=== PATIENT | male | born 1935 | race Caucasian/White ===

== ENCOUNTER 2023-09-21 06:14 | Day surgery (SDC) | payer OTHER, SELFPAY ==
[2023-09-15 10:34] VITALS: BMI 28.6
[2023-09-15 11:30] LABS: % Basophils 0.5 % (0-2); % Eosinophils 1.5 % (0-6); % Immature Granulocytes 0.3 % (0-0.5); % Lymphocytes 14.7 % (20.5-51.1); % Monocytes 11.4 % (1.7-9.3); % Neutrophils 71.6 % (42.2-75.2); Absolute Eosinophils 0.1 10^3/uL (0-0.7); Absolute Lymphocytes 0.9 10^3/uL (1.2-3.4); Absolute Monocytes 0.7 10^3/uL (0.1-0.6); Absolute Neutrophils 4.4 10^3/uL (1.4-6.5); Hematocrit 38.3 % (39.0-52.0); Mean Corp Hgb Conc. 33.9 g/dL (33.0-37.0); Mean Corpuscular Hgb 32.7 pg (27.0-31.0); Mean Corpuscular Volume 96.5 fL (80.0-94.0); Mean Platelet Volume 9.9 fL (7.4-10.4); Nucleated Red Blood Cells % 0 % (-); Platelet Count 168 10^3/uL (130-400); Red Blood Cell Count 3.97 10^6/uL (4.70-6.10); Red Cell Dist. Width 13.6 % (11.5-14.5); White Blood Cell Count 6.1 10^3/uL (4.8-10.8)
[2023-09-15 12:09] LABS: ALT (SGPT) 16 U/L (0-50); AST (SGOT) 28 U/L (17-59); Albumin 4.4 g/dl (3.5-5.0); Alkaline Phosphatase 69 U/L (38-126); Blood Urea Nitrogen 19 mg/dl (9-20); Calcium 10.1 mg/dl (8.4-10.2); Carbon Dioxide 25 mmol/L (22-30); Chloride 103 mmol/L (98-107); Estimated Creatinine Clearance 56 ml/min; Glucose 99 mg/dl (70-99); Potassium 4.4 mmol/L (3.5-5.1); Sodium 136 mmol/L (135-145); Total Bilirubin 0.9 mg/dl (0.2-1.3); eGFR > 60.00
[2023-09-21] VITALS (21 sets, daily range): BP systolic 96–163; BP diastolic 73–108; BMI 27.0
--- NOTE | 2023-09-21 10:17 | ITS.CL.CATH ---
[facility] - Catheterization
Cardiac Catheterization
Procedure Report:
RIGHT AND LEFT HEART CATHETERIZATION
Date of Procedure: September 21, 2023
Referring: Dr. Jeffry Boyd
PROCEDURES:
1. Right heart catheterization
2. Coronary angiography
3. Selective saphenous vein and nonselective VINCENZO angiography
4. Hemodynamic assessment of external iliac/common femoral stenosis with pullback of diagnostic catheter and sheath
INDICATION: 88-year-old gentleman with history of coronary artery disease and prior coronary artery bypass grafting (CESAR-LAD, sequential DHO-ialhcxne-QI-PDA) and mitral repair with a 28 mm mitral valve ring. He has developed progressive aortic
stenosis and worsening LV function with an estimated ejection fraction of 30-35% by visual estimation and mean aortic valve gradient of 44 mmHg. He has experienced episodes of substernal chest tightness and exertional dyspnea.
ACCESS: Attempted left radial access was unsuccessful. Pulsatile lizeth was obtained on several occasions with inability to advance 0.018 inch guidewire. Eventually the left radial approach was abandoned in favor of right common femoral arterial
approach. Ultrasound guidance was utilized with micropuncture technique.
HEMODYNAMICS (mmHg) :
RA (m) : 15
RV (s/d) : 45/9, 15
PA (s/d,m) : 44/23, 30
PCWP (m) : 25 with V waves to 40 mmHg
AO (s/d, m) : 148/85, 109
Estimated Catherine Cardiac Output: 4.3 L/min and Cardiac Index: 2.1 L/min/M-2
Systemic vascular resistance: 21.9 Wood units or 1749 wmfqb-txk-nk(-5)
Pulmonary vascular resistance: 1.2 Wood units or 93 zdopm-uud-je(-5)
CORONARY ANGIOGRAPHY
Dominance: Right
LEFT MAIN: 100% occluded
LEFT ANTERIOR DESCENDIN% occluded at its origin. The distal vessel fills via a patent VINCENZO graft anastomosed to the mid LAD. There is antegrade and retrograde filling of the LAD
CIRCUMFLEX: 100% occluded at its origin. The distal vessel fills via a patent triple sequential vein yrcqh-jxdngygh-VK-PDA
RIGHT CORONARY ARTERY: Not selectively engaged but was not felt to be a likely interventional target through the [place] vessel. The distal vessel is recipient of the terminal limb of the triple sequential graft.
GRAFT ANGIOGRAPHY:
1. CESAR-LAD: Nonselective CESAR injection demonstrates a widely patent graft to the mid LAD. There is antegrade and retrograde filling of the LAD. Retrograde, the LAD fills back to its origin supplying a moderate-sized diagonal branch.
2. CBM-crydlesx-NA-PDA: The triple sequential saphenous vein graft to the fjtrsocs-PS-OCS is widely patent.
NOTE: There was no pullback gradient noted during withdrawal of diagnostic catheter beginning above the aortic endograft and into the right common femoral sheath. Likewise, there was no gradient noted with slow pullback of the femoral sheath from
the right distal limb into the common femoral artery
LEFT VENTRICULOGRAPHY: Not done
RADIATION SUMMARY: Fluoro Time (min): 29, Dose (mGy): 927, DAP (Gy.cm2) : 111.3
Closure Device: None
CONCLUSION
1. 100% occlusion of the left main with widely patent CESAR-LAD and sequential ICM-azhkbmah-PI-PDA
2. Severe aortic stenosis
RECOMMENDATIONS
1. TAVR evaluation
Copy to: Dr. Jeffry Boyd
--- NOTE | 2023-09-21 11:31 | CONSULT.STRU ---
Consultation
-
Date/Time Consultation Requested: 09/21/2023 1000
Date/Time Consultation Performed: 09/21/2023 1030
Requesting Provider: Dr. Chacon
Performing Provider: SRINIVAS Mullins
Reason for Consultation: Aortic stenosis/TAVR evaluation
Patient History
Physicians
Family Physician: Leonidas Evans DO
Outpatient Pen Ruler Operator: Jeffry Boyd MD
Primary Pen Ruler Operator: Jeffry Boyd MD
History of Present Illness
Mr. Quintanilla is a very pleasant 88yo male with known history of aortic stenosis. He denies EPSTEIN. He has noted some mild fatigue and does note some substernal chest tightness at times. He notices it when in stressful situations and it is self limiting. He
denies orthopnea, PND, peripheral edema or palpitations. He has developed progressive aortic stenosis and worsening LV function with an estimated ejection fraction of 30-35% by visual estimation and mean aortic valve gradient of 44 mmHg, LEIGH: 0.6.
Cardiac cath today shows 100% occlusion of the left main with widely patent CESAR-LAD and sequential MRP-jqdnnnqb-PJ-PDA and severe aortic stenosis. He has a history of coronary artery disease with prior CABG(2013), mitral valve repair at time of
bypass,abdominal aortic aneurysm with prior stent graft, paroxysmal atrial fibrillation, aortic stenosis.
Reviewed the pathophysiology of aortic stenosis with the patient, his daughter and his son-in-law. Explained the treatment options of SAVR and TAVR. Explained the TAVR evaluation process including follow up BMP, CT TAVR scan, CT surgery consult and
Heart Team discussion. Provided with script for BMP next week, script and appointment for CT TAVR, Consult appointment with Dr. Cavazos and a copy of the TAVR education booklet with contact information. Allowed for and answered questions.
Past Medical History
Past Medical History: Atrial Fib (paroxysmal (C2V: 5)), BPH, CAD, GERD, HTN, Hypercholesterolemia, Hypothyroidism, Valvular Disease (MV repair, aortic stenosis) and Other (Cardiomyopathy, h/o vertigo, h/o acute bacterial prostatitis and left
epididymitis, h/o AAA, Colon polyps, Pancreatic cyst, lyme disease, diverticulosis, atrophic gastritis)
Past Surgical History
Past Surgical History: CABG (x4-CESAR to LAD, SVG to fist diag then onto 4th OM and then onto PDA 07/2013), Cholecystectomy (laproscopic 2019), Valve (MV repair with 28mm ring 07/2013) and Other (sinus surgery, skin cancer resection, EVAR, cataract
surgery)
Dental History
[facility]
Family History
Mother: at Age and Cause of (liver cancer)
Father: at Age and Cause of (MT)
Family Medical History: Cancer (lung, liver)
Social History
Alcohol: None
Drug: None
Tobacco: Non-Smoker
Personal: ( is in skilled nursing with dementia)
Living: With Family (Daughter and Son-in-law)
Employment: Retired
Allergies
Allergy/AdvReac Type Severity Reaction Status Date / Time
acetaminophen [From Percocet] Allergy Nausea / Verified 09/21/23 06:54
Vomiting
oxycodone [From Percocet] Allergy Nausea / Verified 09/21/23 06:54
Vomiting
Home Medications
�Medication �Instructions �Recorded �Confirmed �Type
finasteride 5 mg tablet 5 mg PO DAILY Urinary issue 07/24/13 09/21/23 History
levothyroxine 25 mcg tablet 50 mcg PO DAILY Thyroid 07/17/17 09/21/23 History
pantoprazole 40 mg tablet,delayed 40 mg PO DAILY Gastrointestinal 11/01/17 09/21/23 History
release issue
atorvastatin 40 mg tablet 40 mg PO QPM High cholesterol 06/16/19 09/21/23 History
apixaban 5 mg tablet (Eliquis) 5 mg PO BID Blood Clot 01/09/23 09/21/23 History
Prevention/Tx
dimenhydrinate 25 mg chewable 50 mg PO Q8HPRN PRN verigo 01/09/23 09/21/23 History
tablet (Dramamine)
lisinopril 40 mg tablet 40 mg PO BID Blood Pressure 01/09/23 09/21/23 History
metoprolol succinate 50 mg 25 mg PO BID Blood Pressure 01/09/23 09/21/23 History
tablet,extended release 24 hr
prednisolone sod phos 1 1 drp ophthalmic (eye) .SEE TAPER 01/09/23 09/21/23 History
%-moxifloxacin 0.5 %-bromfen 0.075 Eye Condition
% eye drops
tamsulosin 0.4 mg capsule (Flomax) 0.4 mg PO HS BPH 01/09/23 09/21/23 History
Cbd Oil 1 squirt transdermal DAILY PRN pain 09/21/23 09/21/23 History
Hempvanna 1 applic topical DAILY PRN Pain 09/21/23 09/21/23 History
cream
acetaminophen 500 mg tablet 1,000 mg PO Q6H PRN as needed 09/21/23 09/21/23 History
amoxicillin 500 mg tablet 2,000 mg PO DAILY PRN Dental 09/21/23 09/21/23 History
Procedures
psyllium husk (aspartame) 3 gram 1 packet PO DAILY 09/21/23 09/21/23 History
oral powder packet (Daily Fiber
(psyllium-aspartame))
STS%
STS %: 6.1% operative mortality. 11.3% M&M
Review of Systems
-
History Source: Patient and Family
General: Reports Fatigue
HEENT: Reports No Symptoms
Respiratory: Reports No Symptoms
Cardiac: Reports Chest Pain (feels with stressful situations. Resolves without medication), CAD (h/o CABGx4), Known Vascular Disease (h/o AAA, Right MORIAH aneurysm) and Palpitations (PAF, a-flutter)
Abdomen/GI: Reports Reflux
: Reports Frequency (BPH)
Musculoskeletal: Reports No Symptoms
Skin: Reports No Symptoms
Neurological: Reports No Symptoms
Vascular: Reports Other (h/o AAA, iliac aneurysm, endoleak s/p EVAR)
Physical Exam
Vital Signs
Temp 97.0 F 09/21/23 09:40
Temp route: Oral 09/21/23 09:40
Pulse 71 09/21/23 11:02
Resp Rate 16 09/21/23 07:09
Blood pressure 96/73 09/21/23 11:02
Blood pressure extremity used: Right upper arm 09/21/23 07:09
Position: Lying 09/21/23 07:09
MAP (cuff-Danna Monitor) 81 09/21/23 11:02
SaO2 98 09/21/23 11:27
Oxygen Mode of Delivery Room air 09/21/23 11:27
Can the patient verbally communicate their pain? Yes 09/21/23 11:27
Actual Weight 85.275 kg 09/21/23 07:14
Body Mass Index (BMI) 27.0 09/21/23 07:14
Labs
09/15/23 10:41
09/15/23 10:41
Diagnostic Studies
09/10/2023 EKG:
Rate: 84, SR with right BBB and left axis bifascicular block
09/07/2023 Echocardiogram:
CONCLUSIONS
Normal left ventricular size. Mildly reduced systolic function. No regional
wall motion abnormalities are seen. LV ejection fraction is 29% by Morales's
biplane method of discs; 30-35% by visual assessment. Mild left ventricular
hypertrophy. Stage II diastolic dysfunction suggestive of abnormal relaxation
and increased filling pressures.
Normal right ventricular size and function.
Normal atria.
S/P # 28 mm Mitral valve ring repair. Peak/mean gradients across the mitral
valve are 9/5 mmHg respectively. Mild mitral regurgitation. This may be
underestimated due to acoustic shadowing.
Thickened and calcified trileaflet aortic valve with restricted leaflet motion.
Trace aortic regurgitation. Severe aortic stenosis. Averaged peak/mean
gradients across the aortic valve are 71/44 mmHg respectively. Using an LVOT
diameter of 2.2 cm the aortic valve by the Continuity equation is calculated at
0.6 cm2. Dimensionless index of 0.2.
Mild tricuspid regurgitation. Estimated pulmonary artery pressure of 37 mmHg
assuming a right atrial pressure of 3 mmHg.
When compared to prior echocardiogram on 03/09/2023, there is newly reduced
LVEF (from 53% to 30-35%); no other significant changes.
Indications:
Nonrheumatic aortic (valve) stenosis
Rhythm: Sinus
Portable Study: No
Technical Quality: Fair to poor
Contrast: None
BP: 124 / 80
PROCEDURE
A complete Transthoracic Echocardiogram was performed utilizing two-dimensional
evaluation with color flow and spectral Doppler analysis.
FINDINGS
Left Ventricle
Normal left ventricular size. Mildly reduced systolic function. No regional
wall motion abnormalities are seen. LV ejection fraction is 29% by Morales's
biplane method of discs; 30-35% by visual assessment. Mild left ventricular
hypertrophy. Stage II diastolic dysfunction suggestive of abnormal relaxation
and increased filling pressures.
Right Ventricle
Normal right ventricular size and function.
Left Atrium
Indexed LA volume is within normal range (15-34 mL/m2).
Right Atrium
Normal right atrial size.
Mitral Valve
S/P # 28 mm Mitral valve ring repair. Peak/mean gradients across the mitral
valve are 9/5 mmHg respectively. Mild mitral regurgitation. This may be
underestimated due to acoustic shadowing.
Aortic Valve
Thickened and calcified trileaflet aortic valve with restricted leaflet motion.
Trace aortic regurgitation. Severe aortic stenosis. Averaged peak/mean
gradients across the aortic valve are 71/44 mmHg respectively. Using an LVOT
diameter of 2.2 cm the aortic valve by the Continuity equation is calculated at
0.6 cm2. Dimensionless index of 0.2.
Tricuspid Valve
Tricuspid valve opens normally. Mild tricuspid regurgitation. Estimated
pulmonary artery pressure of 37 mmHg assuming a right atrial pressure of 3
mmHg.
Pulmonic Valve
Pulmonic valve opens normally. Trace pulmonic regurgitation.
Pericardium\\Pleura
Normal pericardium without effusion.
Aorta
The aortic root is of normal size. Suboptimal suprasternal notch view. Aortic
arch not well visualized.
Other Finding
The IVC is of normal size and demonstrates normal respiratory variation.
Interatrial septum is intact with no evidence of shunting by color flow
Doppler. No intracardiac mass or thrombus formation seen.
MEASUREMENTS (Male / Female) Normal Values
2D ECHO
LV Diastolic Diameter PLAX 5.8 cm 4.2 - 5.9 / 3.9 - 5.3 cm
LV Systolic Diameter PLAX 5.1 cm
IVS Diastolic Thickness 1.3 cm 0.6 - 1.0 / 0.6 - 0.9 cm
LVPW Diastolic Thickness 1.1 cm 0.6 - 1.0 / 0.6 - 0.9 cm
LV Relative Wall Thickness 0.4
LVOT Diameter 2.2 cm
LV Ejection Fraction MOD BP 28.7 % >= 55 %
LV Stroke Volume MOD BP 37.0 cm3
LV Cardiac Index MOD BP 1014.8 cm3/min
LV Stroke Volume MOD 4C 27.5 cm3
LV Stroke Volume 4C AL 29.9 cm3
LV Stroke Volume MOD 2C 42.0 cm3
LV Stroke Volume 2C AL 42.5 cm3
LA Area 4C View 21.2 cm2 <= 20 cm2
LA Length 4C 6.0 cm
LA Volume 61.0 cm3 18 - 58 / 22 - 52 cm3
LA Volume Index 33.8 cm3/m2 16 - 34 cm3/m2
DOPPLER
AV Peak Velocity 422.0 cm/s
AV Peak Gradient 71.2 mmHg
AV Mean Gradient 44.0 mmHg
AV Velocity Time Integral 97.6 cm
LVOT Peak Velocity 64.9 cm/s
LVOT Peak Gradient 1.7 mmHg
LVOT Velocity Time Integral 15.7 cm
LVOT Stroke Volume 59.8 cm3
LVOT Stroke Volume Index 28.8 ml/m2 empty
LVOT Cardiac Index 1640.3 cm3/min\\m2
AV Area Cont Eq vti 0.6 cm2
AV Area Cont Eq pk 0.6 cm2
MV Peak Velocity 153.0 cm/s
MV Peak Gradient 9.4 mmHg
MV Mean Velocity 104.0 cm/s
MV Mean Gradient 5.0 mmHg
MV Area PHT 2.0 cm2
Mitral E Point Velocity 145.0 cm/s
Mitral A Point Velocity 132.0 cm/s
Mitral E to A Ratio 1.1
LV E' Lateral Velocity 15.3 cm/s
Mitral E to LV E' Lateral Ratio 9.5
LV E' Septal Velocity 6.0 cm/s
Mitral E to LV E' Septal Ratio 24.0
TR Peak Velocity 291.0 cm/s
TR Peak Gradient 33.9 mmHg
09/21/2023 Cardiac Cath:
HEMODYNAMICS (mmHg) :
RA (m) : 15
RV (s/d) : 45/9, 15
PA (s/d,m) : 44/23, 30
PCWP (m) : 25 with V waves to 40 mmHg
AO (s/d, m) : 148/85, 109
Estimated Catherine Cardiac Output: 4.3 L/min and Cardiac Index: 2.1 L/min/M-2
Systemic vascular resistance: 21.9 Wood units or 1749 gfhft-snf-iv(-5)
Pulmonary vascular resistance: 1.2 Wood units or 93 iftbo-swz-gn(-5)
CORONARY ANGIOGRAPHY
Dominance: Right
LEFT MAIN: 100% occluded
LEFT ANTERIOR DESCENDIN% occluded at its origin. The distal vessel fills via a patent VINCENZO graft anastomosed to the mid LAD. There is antegrade and retrograde filling of the LAD
CIRCUMFLEX: 100% occluded at its origin. The distal vessel fills via a patent triple sequential vein fdrig-yglufqzy-RJ-PDA
RIGHT CORONARY ARTERY: Not selectively engaged but was not felt to be a likely interventional target through the king [place] vessel. The distal vessel is recipient of the terminal limb of the triple sequential graft.
GRAFT ANGIOGRAPHY:
1. CESAR-LAD: Nonselective CESAR injection demonstrates a widely patent graft to the mid LAD. There is antegrade and retrograde filling of the LAD. Retrograde, the LAD fills back to its origin supplying a moderate-sized diagonal branch.
2. EOR-zvrzselv-LB-PDA: The triple sequential saphenous vein graft to the qxsyemjr-QU-NNJ is widely patent.
NOTE: There was no pullback gradient noted during withdrawal of diagnostic catheter beginning above the aortic endograft and into the right common femoral sheath. Likewise, there was no gradient noted with slow pullback of the femoral sheath from
the right distal limb into the common femoral artery
LEFT VENTRICULOGRAPHY: Not done
RADIATION SUMMARY: Fluoro Time (min): 29, Dose (mGy): 927, DAP (Gy.cm2) : 111.3
Closure Device: None
CONCLUSION
1. 100% occlusion of the left main with widely patent CESAR-LAD and sequential LND-mdpnzbqc-DR-PDA
2. Severe aortic stenosis
RECOMMENDATIONS
1. TAVR evaluation
Exam
General: Well Developed, Well Nourished, No Apparent Distress and Comfortable
HEENT: Normocephalic and Moist Mucous Membranes
Neck: Trachea Midline
Respiratory: Clear
Cardiac: S1/S2, Regular Rhythm and Murmur (Grade III/)
GI: Soft, Non Tender, Non Distended and Normal Bowel Sounds
Rectal: Deferred by Provider
Skin: Warm and Dry
Neuro: AO x 3 and No Motor Deficits
Extremities: Pulses (Left and right dp and PT pulse +1)
Psych: Calm
Assessment / Plan
-
Severe Aortic stenosis:
��������������� Continue evaluation for TAVR
��������������� BMP 09/27/2023 at
��������������� CT TAVR scan 10/01/2023 at
��������������� CT surgery consult with Dr. Cavazos 10/07/2023
��������������� Heart team discussion at [facility]
Dental Clearance- form faxed to dentist 09/20
Paroxysmal Atrial Fibrillation (C2V:5):
Rate control
Will need to hold Eliquis 48 hours prior to TAVR and start ASA while on hold
Data Reviewed
-
EKG: Report Reviewed by me (SR with R-BBB and Left axis bifascicular block)
Prosthetics Assistant: Discussed with Physician
Echo: Report Reviewed by me
Labs: Labs Reviewed by me
Old Records: Reviewed (Cardiology office note, CABG and MV repair operative report, EVAR operative report)
Total Time Spent with Patient (in minutes): 45
== END 2023-09-21 13:35 | disposition home or self-care (01) ==
LOC: CATH 06:14
PROVIDERS: Internal Medicine Interventional Cardiology; ATTENDING PHYSICIAN Internal Medicine Cardiovascular Disease; FAMILY PHYSICIAN Family Medicine
DX: I25.10 Atherosclerotic heart disease of native coronary artery without angina pectoris (principal); I08.3 Combined rheumatic disorders of mitral, aortic and tricuspid valves; I08.8 Other rheumatic multiple valve diseases; R07.89 Other chest pain; R53.83 Other fatigue; I48.0 Paroxysmal atrial fibrillation; Z87.19 Personal history of other diseases of the digestive system; K21.9 Gastro-esophageal reflux disease without esophagitis; N40.0 Benign prostatic hyperplasia without lower urinary tract symptoms; E78.00 Pure hypercholesterolemia, unspecified; E03.9 Hypothyroidism, unspecified; I10 Essential (primary) hypertension; Z95.1 Presence of aortocoronary bypass graft; R06.09 Other forms of dyspnea
CPT/HCPCS: 93306; 36415; 80053; 85025; 93457; C1769; C1894; Q9967

== ENCOUNTER 2023-09-22 16:12 | Emergency (ER) | payer OTHER, SELFPAY ==
[2023-09-22 16:16] VITALS: BP 141/69
[2023-09-22 17:46] VITALS: BP 132/89; BMI 27.5
[2023-09-22 19:40] VITALS: BP 142/100
[2023-09-22 19:42] VITALS: BP 133/102
--- NOTE | 2023-09-22 21:10 | ED.GENMED ---
History of Present Illness
General
Chief Complaint: Post Operative Problem(s)
Time Seen by Provider: 09/22/23 18:16
Travel History
Have you had any contact with someone who has COVID-19?: No
Do you have any symptoms of coronavirus? Fever > 100 degrees, chills, cough, shortness of breath, sore throat, loss of taste or smell, muscle aches, or headache?: No
History of Present Illness
History of Present Illness:
88-year-old male history of atrial fibrillation on Eliquis, CAD, hypertension, hyperlipidemia, cardiac catheterization accessed via right groin yesterday presenting with increased ecchymosis to right groin that he noticed this afternoon. Patient
denies any abdominal pain, swelling, pain, redness, or fever. Patient states he started taking his eliquis again last night. Patient denies any further trauma to the area.
Past History
Past History
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
ED Past Surgical History: Cardiac (CABG/mitral valve repair 07/2013) and Other
Social History
Tobacco: Non-smoker
Alcohol: None
Personal:
Living: with family
Employment: Retired
Family History
Family History: Other (Noncontributory)
Phy Exam
Physical Exam
Physical Exam:
General: Alert, no acute distress
Head: NCAT
Eyes: clear conjunctiva
Neck: supple
Cardiac: regular rate and rhythm, no murmur
Lungs: clear to auscultation bilaterally. No wheezes, rales, or rhonchi. Speaking full unlabored sentences. No respiratory distress.
Abdomen: soft, nondistended nontender. No rebound or guarding.
MSK: no lower extremity edema bilaterally. No deformity. Puncture wound right groin with surrounding ecchymosis extending into scrotum. No tenderness to palpation. No swelling. No bulging. No mass
Skin: warm, dry.
Neuro: Alert and oriented x3. no focal deficits
Course
Orders/Labs/Results
Orders:
Orders
09/22/23 19:44
US Groin (vascular exam) RT Urgent
Comment:
Reason For Exam: pci yesterday from r fem, increased bruising
Vital Signs
Initial and Last Documented VS:
Initial Vital Signs
Temp Pulse Resp BP Pulse Ox
97.9 F 79 16 141/69 99
09/22/23 16:16 09/22/23 16:16 09/22/23 16:16 09/22/23 16:16 09/22/23 16:16
Last Documented Vital Signs
Temp Pulse Resp BP Pulse Ox
97.9 F 87 18 147/98 98
09/22/23 16:16 09/22/23 21:29 09/22/23 17:46 09/22/23 21:29 09/22/23 21:29
Comment
Comment:
Patient presents to the Emergency Department with __right groin ecchymosis
Number and Complexity of Problems Addressed at the Encounter
� Chronic conditions affecting care: afib on eliquis
� Acute Exacerbation and/or Progression of Chronic Illness:
� Differential Diagnosis includes: Pseudoaneurysm, active extravasation from cardiac cath accessed site, hematoma, nonspecific bruising
Amount and/or Complexity of Data to be Reviewed and Analyzed
� I performed an independent evaluation of and my interpretation is:
EKG:
CT:
Xrays:
Laboratory Studies:
Other:
� Review of other/old records reveals:
� Clinical information was obtained by an independent historian:
� Prescriptions/Medications Considered but not given:
� Further testing considered but not performed:
Risk of Complications and/or Morbidity or Mortality of Patient Management
� Social Determinants of health affecting care:
� Discussion with other providers (PCP, Hospitalists, Consultants, etc):
� Escalation of care including admission/observation vs risk of discharge considered: 88-year-old male history of atrial fibrillation on Eliquis who had a cardiac catheterization accessed via right groin yesterday presenting with increased
ecchymosis to right groin. Obtained vascular groin ultrasound showing very small hematoma and other either another very small hematoma or lymph node. No psa, extrav, or avf, nml waveforms vessels as read by vascular radiologist. Discussed with
patient at bedside. Will discharge with PCP follow up.
*Critical Care Note
Total Time (30-74mins, 75-104mins- exclusive of procedures): Not Applicable
ED Attending Note
-
Portions of this chart may have been created with voice recognition software.� Occasional wrong word or��sound alike� substitutions may have occurred due to the inherent limitations of voice recognition software.
Discharge Plan
Departure
Patient Disposition: Home (Routine Discharge)
Date of Disposition: 09/22/23
Time of Disposition: 21:16
Patient with high blood pressure during this ER visit?: Yes
Discharge Problem:
Hematoma
Instructions: BLOOD PRESSURE
Prescriptions:
No Action
finasteride 5 MG tablet
5 mg PO DAILY
levothyroxine 25 MCG tablet
50 mcg PO DAILY
pantoprazole 40 MG tablet,delayed release (DR/EC)
40 mg PO DAILY
atorvastatin 40 MG tablet
40 mg PO QPM
tamsulosin [Flomax] 0.4 mg Capsule
0.4 mg PO HS
lisinopril 40 mg Tablet
40 mg PO BID
Eliquis 5 mg Tablet
5 mg PO BID
Dramamine 25 mg Tablet,Chewable
50 mg PO Q8HPRN PRN (Reason: vertigo)
metoprolol succinate 50 MG tablet extended release 24 hr
25 mg PO BID
acetaminophen 500 mg Tablet
1,000 mg PO Q6H PRN (Reason: as needed)
amoxicillin 500 mg Tablet
2,000 mg PO DAILY PRN (Reason: Dental Procedures)
Daily Fiber (psyllium-aspart) 3 gram Powder In Packet
1 packet PO DAILY
Cbd Oil
1 squirt transdermal DAILY PRN (Reason: pain)
Hempvanna
1 applic topical DAILY PRN (Reason: Pain cream)
Referrals:
Leonidas Evans, [Family Provider] -
Activity Restrictions/Additional Instructions:
Continue taking medications as prescribed
Follow-up with primary care doctor in 1 to 2 days for wound recheck
Return to emergency department for increasing pain/swelling, fevers, shortness of breath or new/worsening symptoms
Interventions
Interventions:
*Risk Screen - Suicide Last Done: 09/22/23 16:16
*General Assessment Last Done: 09/22/23 17:46
*Neglect/Abuse Screening Last Done: 09/22/23 16:16
ED- Fall Risk Assessment Last Done: 09/22/23 17:47
*ED COVID-19 Vaccine History Last Done: 09/22/23 16:16
*Nursing Disposition Last Done: 09/22/23 21:29
ED-Skin Assessment Last Done: 09/22/23 17:47
Discharge Date and Time
Discharge Date/Time: 09/22/23 21:30
Print Language: DANISH
[2023-09-22 21:29] VITALS: BP 147/98
== END 2023-09-22 21:30 | disposition home or self-care (01) ==
LOC: EMR 16:12
PROVIDERS: EMERGENCY PHYSICIAN Emergency Medicine; FAMILY PHYSICIAN Family Medicine
DX: S30.201A Contusion of unspecified external genital organ, male, initial encounter (principal); X58.XXXA Exposure to other specified factors, initial encounter; I10 Essential (primary) hypertension; I48.0 Paroxysmal atrial fibrillation; Z79.01 Long term (current) use of anticoagulants
CPT/HCPCS: 99284; 93926

== ENCOUNTER 2023-09-26 08:51 | Emergency (ER) | payer OTHER, SELFPAY ==
[2023-09-26 08:55] VITALS: BP 124/95
--- NOTE | 2023-09-26 09:42 | ED.GENMED ---
History of Present Illness
General
Chief Complaint: Post Operative Problem(s)
Source: patient and records
Exam Limitations: none
Time Seen by Provider: 09/26/23 09:09
Nursing documentation reviewed up to this point in time: agreed with
Travel History
Have you had any contact with someone who has COVID-19?: No
Do you have any symptoms of coronavirus? Fever > 100 degrees, chills, cough, shortness of breath, sore throat, loss of taste or smell, muscle aches, or headache?: No
History of Present Illness
History of Present Illness:
88-year-old male with past medical history of hypertension, hyperlipidemia, CAD, atrial fibrillation, AAA status postrepair who presents to the emergency department for evaluation of right groin pain and swelling. Patient had cardiac
catheterization on 09/21/[address] Chacon. He says that he was doing generally well after the procedure. The next day he noticed some pain and swelling in the right groin and returned here to the emergency room to have the area assessed. He
was evaluated with a vascular ultrasound of the right groin and was found to have no pseudoaneurysm but did have a small hematoma in the area. He was discharged to follow-up with cardiology as an outpatient. He says his follow-up appointment is
not until 10/08/2023. He says that over the past few days he has had increased pain in the right groin, increased swelling in the right groin, increased bruising in the pelvic region. Decided to come back to the emergency to be assessed. He denies
any other symptom including chest pain, shortness of breath, numbness or tingling his extremities, swelling of his extremities.
Past History
Past History
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
ED Past Surgical History: Cardiac (CABG/mitral valve repair 07/2013) and Other
Social History
Tobacco: Non-smoker
Alcohol: None
Personal:
Living: with family
Employment: Retired
Family History
Family History: Other (Noncontributory)
Review of Systems
Review of Systems
All Other Systems: ROS reviewed and negative except as documented in HPI and ROS
Constitutional: Denies fever
Respiratory: Denies trouble breathing
Cardiac: Denies chest pain
ABD/GI: Denies abdominal pain
: Denies flank pain
Musculoskeletal: Reports other (Right groin pain and swelling); Denies neck pain or back pain
Skin: Reports other (Bruising in the groin/pelvis)
Neurological: Denies dizzy
Phy Exam
Physical Exam
Physical Exam:
General: Awake, alert; no acute distress
Head: Normocephalic, atraumatic
Eyes: Conjunctiva normal, sclera anicteric
Throat: Airway intact, handling secretions
Neck: Trachea midline, supple without meningismus
Lungs: Clear to auscultation bilaterally, no wheezing, rales, rhonchi
Heart: Regular rate and rhythm, no murmurs, gallops, or rubs
Abd: Soft, non distended, nontender
/groin: Patient has ecchymosis in the suprapubic region extending towards the right groin, scrotum, penis; he has a small palpable presumably hematoma which is nonpulsatile in the right groin superior to the inguinal crease; he has a good strong
right femoral pulse inferior and lateral to this small palpable mass
Neuro: No gross deficits
Skin: Ecchymosis as above
Extremities: Warm and well-perfused; has a good right femoral pulse and a good DP pulse in the right lower extremity
Scores
Heart Failure Risk
Heart Failure Risk Score: Not Applicable
Heart Score for Chest Pain Patients
STEMI patient?: Not applicable
Withdrawal Assessment of Alcohol
Withdrawal Assessment Completed?: Not applicable
Course
Orders/Labs/Results
Orders:
Orders
09/26/23 09:44
Complete Blood Count/With Diff Urgent
Comprehensive Metabolic Panel Urgent
US Groin (vascular exam) RT Urgent
Comment:
Reason For Exam: right groin swelling, pain
09/26/23 10:51
CT Abd Aorta Angio W/ Run Off Urgent
Comment:
Reason For Exam: right groin hematoma and swelling s/p cath
Abnormal Lab Results
09/26/23
09:44
WBC 4.4 L 10^3/uL
(4.8-10.8)
RBC 3.54 L 10^6/uL
(4.70-6.10)
Hgb 11.5 L g/dL
(13.0-18.0)
Hct 32.3 L %
(39.0-52.0)
MCH 32.5 H pg
(27.0-31.0)
Absolute Lymphs (auto) 0.4 L 10^3/uL
(1.2-3.4)
Neutrophils % 80.3 H %
(42.2-75.2)
Lymphocytes % 8.4 L %
(20.5-51.1)
Sodium 133 L mmol/L
(135-145)
Glucose 100 H mg/dl
(70-99)
09/26/23 09:44
09/26/23 09:44
Vital Signs
Initial and Last Documented VS:
Initial Vital Signs
Temp Pulse Resp BP Pulse Ox
36.9 C 74 18 124/95 97
09/26/23 08:55 09/26/23 08:55 09/26/23 08:55 09/26/23 08:55 09/26/23 08:55
Last Documented Vital Signs
Temp Pulse Resp BP Pulse Ox
36.9 C 74 18 124/95 97
09/26/23 08:55 09/26/23 08:55 09/26/23 08:55 09/26/23 08:55 09/26/23 08:55
MDM/Problems Addressed
Differential Diagnosis Includes:
Hematoma, pseudoaneurysm, abscess less likely
MDM/Problems Addressed:
88-year-old male presents for evaluation of swelling and pain in the right groin status postcardiac catheterization on 09/20. Was evaluated for similar few days ago and had ultrasound showing small hematoma but no pseudoaneurysm. He says swelling
and bruising has increased as has his pain. Vital signs are normal. Exam as above. Discussed with both vascular surgery and cardiology�will start with vascular ultrasound to evaluate for pseudoaneurysm and consider CT angio if negative for
pseudoaneurysm to rule out active extravasation. Will check basic labs. Reassess after the above.
Labs reviewed: CBC shows anemia to 11.5 which is decreased from prior labs where he had a hemoglobin of 13. His CMP shows no clinically significant abnormalities�notably normal creatinine. Ultrasound shows 2 small hematomas in the right groin but
negative for pseudoaneurysm�previous showed 1 small hematoma. Will proceed with CT angiogram to rule out any active extravasation into the groin given that he has had a drop in his hemoglobin, is on anticoagulation, and is having worsening symptoms
of pain and swelling, bruising.
CTA shows small hematoma but no active extravasation. Vitals have been stable here. Plan for discharge. Advised to call cardiology to expedite follow-up. He feels comfortable with this plan. Spoke with return precautions all questions answered.
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
*Radiology
Radiology exam reviewed: radiology read reviewed
*Pulse Oximetry
Patient hypoxic: no
*Critical Care Note
Total Time (30-74mins, 75-104mins- exclusive of procedures): Not Applicable
Data Reviewed
Review of Other/Old Records Reveals: Labs, Records, Radiology Studies and Discharge Summary
Source: patient and records
Patient Management
Discussion with other providers: Grocery Clerk Selling (Discussed with vascular surgery, interventional cardiology)
ED Attending Note
-
Portions of this chart may have been created with voice recognition software.� Occasional wrong word or��sound alike� substitutions may have occurred due to the inherent limitations of voice recognition software.
Discharge Plan
Departure
Patient Disposition: Home (Routine Discharge)
Date of Disposition: 09/26/23
Time of Disposition: 13:49
Patient with high blood pressure during this ER visit?: No
Discharge Problem:
Hematoma of right inguinal region
Instructions: Postoperative Pain (DC), Hematoma
Prescriptions:
No Action
finasteride 5 MG tablet
5 mg PO DAILY
levothyroxine 25 MCG tablet
50 mcg PO DAILY
pantoprazole 40 MG tablet,delayed release (DR/EC)
40 mg PO DAILY
atorvastatin 40 MG tablet
40 mg PO QPM
tamsulosin [Flomax] 0.4 mg Capsule
0.4 mg PO HS
lisinopril 40 mg Tablet
40 mg PO BID
Eliquis 5 mg Tablet
5 mg PO BID
Dramamine 25 mg Tablet,Chewable
50 mg PO Q8HPRN PRN (Reason: vertigo)
metoprolol succinate 50 MG tablet extended release 24 hr
25 mg PO BID
acetaminophen 500 mg Tablet
1,000 mg PO Q6H PRN (Reason: as needed)
amoxicillin 500 mg Tablet
2,000 mg PO DAILY PRN (Reason: Dental Procedures)
Daily Fiber (psyllium-aspart) 3 gram Powder In Packet
1 packet PO DAILY
Cbd Oil
1 squirt transdermal DAILY PRN (Reason: pain)
[place]
1 applic topical DAILY PRN (Reason: Pain cream)
Referrals:
Leonidas Evans DO [Family Provider] - Follow up in 2-3 days
Activity Restrictions/Additional Instructions:
Thank you for visiting the Emergency Department at [facility].
1. Please schedule a follow up appointment as directed. Call first thing tomorrow morning to make an appointment.
2. If indicated, please take your medications as instructed and indicated on discharge paperwork.
3. If any of your symptoms do not improve, or persist, or become more severe within 6-12 hours, please return to the emergency department for further care.
4. Please return to the emergency department if you develop a headache, neck pain/stiffness, fever greater than 100.4F, chest pain, shortness of breath, persistent nausea, vomiting, slurred speech, difficulty walking, numbness/tingling, weakness,
signs of infection or any other symptoms that are worrisome to you.
Please call [phone] if you have any questions.
Interventions
Interventions:
*General Assessment Last Done: 09/26/23 08:55
*ED COVID-19 Vaccine History Last Done: 09/26/23 08:55
ED-Skin Assessment Last Done: 09/26/23 09:58
Discharge Date and Time
Print Language: GUYANESE
[2023-09-26 09:53] LABS: % Basophils 0.7 % (0-2); % Eosinophils 1.8 % (0-6); % Immature Granulocytes 0.2 % (0-0.5); % Lymphocytes 8.4 % (20.5-51.1); % Monocytes 8.6 % (1.7-9.3); % Neutrophils 80.3 % (42.2-75.2); Absolute Eosinophils 0.1 10^3/uL (0-0.7); Absolute Lymphocytes 0.4 10^3/uL (1.2-3.4); Absolute Monocytes 0.4 10^3/uL (0.1-0.6); Absolute Neutrophils 3.6 10^3/uL (1.4-6.5); Hematocrit 32.3 % (39.0-52.0); Hemoglobin 11.5 g/dL (13.0-18.0); Mean Corp Hgb Conc. 35.6 g/dL (33.0-37.0); Mean Corpuscular Hgb 32.5 pg (27.0-31.0); Mean Corpuscular Volume 91.2 fL (80.0-94.0); Mean Platelet Volume 9.5 fL (7.4-10.4); Nucleated Red Blood Cells % 0 % (-); Platelet Count 149 10^3/uL (130-400); Red Blood Cell Count 3.54 10^6/uL (4.70-6.10); Red Cell Dist. Width 13.4 % (11.5-14.5); White Blood Cell Count 4.4 10^3/uL (4.8-10.8)
[2023-09-26 10:23] LABS: ALT (SGPT) 19 U/L (0-50); AST (SGOT) 28 U/L (17-59); Albumin 3.9 g/dl (3.5-5.0); Alkaline Phosphatase 64 U/L (38-126); Blood Urea Nitrogen 20 mg/dl (9-20); Calcium 9.6 mg/dl (8.4-10.2); Carbon Dioxide 26 mmol/L (22-30); Chloride 104 mmol/L (98-107); Glucose 100 mg/dl (70-99); Potassium 4.4 mmol/L (3.5-5.1); Sodium 133 mmol/L (135-145); Total Bilirubin 0.9 mg/dl (0.2-1.3); Total Protein 6.5 g/dl (6.3-8.2); eGFR > 60.00
[2023-09-26 14:09] VITALS: BP 132/79
== END 2023-09-26 14:18 | disposition home or self-care (01) ==
LOC: EMR 08:51
PROVIDERS: EMERGENCY PHYSICIAN Emergency Medicine; FAMILY PHYSICIAN Family Medicine
DX: S30.1XXA Contusion of abdominal wall, initial encounter (principal); X58.XXXA Exposure to other specified factors, initial encounter; R10.31 Right lower quadrant pain; I10 Essential (primary) hypertension; E78.00 Pure hypercholesterolemia, unspecified; I25.10 Atherosclerotic heart disease of native coronary artery without angina pectoris; I48.91 Unspecified atrial fibrillation; Z86.79 Personal history of other diseases of the circulatory system; Z95.1 Presence of aortocoronary bypass graft
CPT/HCPCS: 99284; 75635; 80053; 85025; 93926; Q9967

== ENCOUNTER → 2023-09-28 11:46 | Outpatient (REF) | payer OTHER, SELFPAY ==
[2023-09-28 13:33] LABS: Blood Urea Nitrogen 17 mg/dl (9-20); Calcium 9.8 mg/dl (8.4-10.2); Carbon Dioxide 26 mmol/L (22-30); Chloride 102 mmol/L (98-107); Glucose 126 mg/dl (70-99); Potassium 4.5 mmol/L (3.5-5.1); Sodium 134 mmol/L (135-145); eGFR > 60.00
== END ==
LOC: REG 11:46
PROVIDERS: ATTENDING PHYSICIAN Nurse Practitioner Adult Health
DX: I35.0 Nonrheumatic aortic (valve) stenosis (principal)
CPT/HCPCS: 80048

== ENCOUNTER → 2023-10-01 08:48 | Outpatient (REF) | payer OTHER, SELFPAY | LOC: RAD 08:48 | PROVIDERS: ATTENDING PHYSICIAN Nurse Practitioner Adult Health; FAMILY PHYSICIAN Family Medicine | DX: I35.0 Nonrheumatic aortic (valve) stenosis (principal) | CPT/HCPCS: 75572; Q9967 ==

== ENCOUNTER 2023-11-04 07:30 | Inpatient (IN) | payer OTHER, SELFPAY ==
[2023-11-01 08:15] VITALS: BMI 28.3
[2023-11-01 09:37] LABS: % Basophils 0.7 % (0-2); % Eosinophils 3.3 % (0-6); % Immature Granulocytes 0.2 % (0-0.5); % Lymphocytes 16.3 % (20.5-51.1); % Monocytes 13.1 % (1.7-9.3); % Neutrophils 66.4 % (42.2-75.2); Absolute Eosinophils 0.2 10^3/uL (0-0.7); Absolute Lymphocytes 0.7 10^3/uL (1.2-3.4); Absolute Monocytes 0.6 10^3/uL (0.1-0.6); Hematocrit 37.2 % (39.0-52.0); Hemoglobin 12.4 g/dL (13.0-18.0); Mean Corp Hgb Conc. 33.3 g/dL (33.0-37.0); Mean Corpuscular Hgb 32.4 pg (27.0-31.0); Mean Corpuscular Volume 97.1 fL (80.0-94.0); Mean Platelet Volume 9.7 fL (7.4-10.4); Nucleated Red Blood Cells % 0 % (-); Platelet Count 144 10^3/uL (130-400); Red Blood Cell Count 3.83 10^6/uL (4.70-6.10); Red Cell Dist. Width 13.4 % (11.5-14.5); White Blood Cell Count 4.5 10^3/uL (4.8-10.8)
[2023-11-01 09:40] LABS: Urine Albumin Negative (Neg - Trace); Urine Bilirubin Negative (Negative); Urine Character Clear (Clear); Urine Color Yellow; Urine Glucose Negative (Negative); Urine Ketone Negative (Negative); Urine Leukocyte Negative (Negative); Urine Nitrite Negative (Negative); Urine Occult Blood Negative (Negative); Urine Urobilinogen Negative (Neg - 1+)
[2023-11-01 09:55] LABS: Glycohemoglobin (HgbA1c) 5.6 % (4.0-5.6); INR 1.28; PT 15.8 Sec (11.4-14.6)
[2023-11-01 09:56] LABS: APTT 36.4 Sec (23.4-35.0)
[2023-11-01 10:09] LABS: ALT (SGPT) 18 U/L (0-50); AST (SGOT) 28 U/L (17-59); Alkaline Phosphatase 69 U/L (38-126); Blood Urea Nitrogen 18 mg/dl (9-20); Calcium 9.8 mg/dl (8.4-10.2); Carbon Dioxide 26 mmol/L (22-30); Chloride 105 mmol/L (98-107); Direct Bilirubin 0.4 mg/dl (0.0-0.4); Estimated Creatinine Clearance 50 ml/min; Glucose 101 mg/dl (70-99); Potassium 4.3 mmol/L (3.5-5.1); Sodium 137 mmol/L (135-145); Total Bilirubin 0.9 mg/dl (0.2-1.3); Total Protein 6.8 g/dl (6.3-8.2); eGFR > 60.00
[2023-11-01 10:17] LABS: NT-proBNP 3620 pg/ml
--- NOTE | 2023-11-01 12:33 | HPS.HSE ---
Family Physician
-
Family Physician: Leonidas Evans
Cardiology: Jeffry Boyd
Chief Complaint
-
Pre-admission testing for TAVR
History of Present Illness
Guido Quintanilla is a very pleasant 88-year-old male with known progressive aortic valve stenosis. He previously underwent mitral valve and CABG surgery on 08/07/2013 where his mitral valve was repaired with a 28 mm ring, CABG x 4 with CESAR to LAD and
sequential graft from diagonal into his marginal to PDA. His most recent echocardiogram demonstrated a peak/mean gradient of 71/44 mmHg, respectively. LEIGH was calculated to be 0.6 and peak velocity was 4.22m/s. Left ventricular function is reduced
with an EF approximated to be 30%. In comparison to previous echos, he has mild-moderate eccentric MR and his EF has significant dropped, his November 2021 echo demonstrated an LVEF of 55% and moderately severe with a mean gradient of 34mmHg and LEIGH
0.7. Echo from Feb 2023 with again preserved ef at 50-55% and now severe with a mean gradient of 48mmHg DI of 0.2 and LEIGH to be 0.7. His left heart catheterization revealed occlusion of the qagan tayagungin LM, with widely patent CESAR-LAD and sequential
ONE-Thdsrsve-GT-PDA. From a symptomatology standpoint, he describes some chest discomfort, some fatigue, but overall mild symptoms. In comparison to 1 year ago, he feels a little bit more tired. Functionally, he is very active (tells me he does 50
push ups against the sink daily). Patient was reviewed by the Heart Team at the shared decision making meeting and TAVR was recommended as treatment for his severe aortic stenosis.
Patient is accompanied today by his daughter. Reviewed risks of TAVR including PPM, Stroke and Bleeding. 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 Explained this in detail. Allowed for and answered questions.
Patient will stop Elliquis after his dose this evening with plan to restart post TAVR. He will take 324mg of aspirin Wednesday and then 81mg Wed and prior to his arrival at 0730. He will also take his levothyroxine prior to his 729 arrival.
They are aware they will receive a call on to review procedure and confirm arrival time.
Medical History
Past Medical History
Past Medical History: Reports Arrhythmia (a-fib), CAD, GERD, HTN, Hypercholesterolemia, Hypothyroidism, Valvular Disease (h/o MV repair, mild MR, severe aortic stenosis, trace AI, Mild TR) and Other (vertigo, h/o acute bacterial prostatitis, colon
polyps, AAA-s/p EVAR with endoleak, BPH, Cardiomyopathy, sciatica, PAD, Atrophic gastritis, pancreatic cyst)
Past Surgical History: Reports Cardiac (CABG x4, CESAR to LAD abd then onto PDA, MV repair with 28mm ring, SVG to first diag then onto 4th OM), Cholecystectomy (laproscopic) and Other (sinus surgery, skin cancer resection, EVAR, cataracts)
Social History
Tobacco: Non-smoker
Alcohol: None
Drug: None
Personal: ( in [place] [facility]-d[facility])
Living: With Family (lives with daughter and son-in-law)
Employment: Retired
Family History
Family History: Not pertinent
Allergies / Home Medications
Allergies reflects when Allergies were last updated in [email or web address].
Home Medications with original date entered in [email or web address]
Allergy/Medication List:
ALLERGIES:
Perccet- nausea/vomiting
MEDICATIONS:
Atorvastatin Calcium 80 MG Tablet 0.5 tablet Orally Once a day, Notes: total 40 mg
Eliquis(Apixaban) 5 MG Tablet 1 tablet Orally Twice a day
Fiber 28.3 % Powder as directed Orally Once a Day
Finasteride 5 MG Take one tablet by mouth daily Oral
Levothyroxine Sodium 50 MCG Capsule 1 capsule in the morning on an empty stomach Orally Once a day
Lisinopril 40 MG Tablet 1 tablet Orally Twice a Day
Metoprolol Succinate ER 50 MG Tablet Extended Release 24 Hour 0.5 mg Orally Twice a Day
Pantoprazole Sodium 40 MG Tablet Delayed Release 1 tablet Orally Once a day
Tamsulosin HCl 0.4 MG Capsule 1 capsule Orally Once a day, Notes: flomax
Review of Systems
-
History Source: Patient
Constitutional: Reports Fatigue (mild)
EENT: Reports No Symptoms
Respiratory: Reports No Symptoms; Denies Cough or Trouble Breathing
Cardiac: Reports No Symptoms; Denies Chest Pain, Diaphoresis, Palpitations or Syncope
Abdomen/GI: Reports No Symptoms; Denies Abdominal Pain, Nausea, Vomiting, Diarrhea or Constipated
: Reports No Symptoms; Denies Dysuria, Frequency or Bleeding
Musculoskeletal: Reports No Symptoms
Skin: Reports No Symptoms; Denies Itching or Rash
Neurological: Reports No Symptoms
Endocrine: Reports No Symptoms
Hematologic/Lymphatic: Reports No Symptoms
Psych: Reports No Symptoms
Physical Exam
Physical Exam
General: Well Developed, Well Nourished, No Apparent Distress and Comfortable
HEENT: NormoCephalic, Moist mucous membranes, PERRLA and Other (ecchymosis right neck/chin)
Respiratory: Clear and Non Labored Respirations; No Wheezes, Rales, Rhonchi or Crackles
Cardiac: S1/S2, Regular Rhythm and Murmur (Grade II/); No Peripheral Edema
Breast: Deferred by me
GI: Soft, Non Tender, Non Distended and Normal Bowel Sounds
Rectal: Deferred by Provider
Genito-urinary: Deferred by me
Musculoskeletal: No Clubbing, No Cyanosis and No Edema
Skin: Warm and Dry
Neuro: AO x 3, No Motor Deficits and Nonfocal/grossly intact
Hematologic/Lymphatic: No Lymphadenopathy
Psych: Calm and Intact Judgment/Insight
Laboratory Results
-
11/01/23 08:24
11/01/23 08:24
Laboratory Results
PT 15.8 Sec (11.4-14.6) H 11/01/23 08:24
INR 1.28 11/01/23 08:24
APTT 36.4 Sec (23.4-35.0) H 11/01/23 08:24
Total Bilirubin 0.9 mg/dl (0.2-1.3) 11/01/23 08:24
AST 28 U/L (17-59) 11/01/23 08:24
ALT 18 U/L (0-50) 11/01/23 08:24
Alkaline Phosphatase 69 U/L (38-126) 11/01/23 08:24
Data Reviewed
-
Diagnostic Radiology: Report Reviewed by me
CT Scan: Report Reviewed by me (TAVR CT scan)
Medical Tests (Nuc Med, Echo, EKG etc): Report Reviewed by me, Discussed with Physician (Dr. Dee, Dr. Galeas and Dr. Shaver made aware of patient and high risk for PPM given bifascicular block) and Discussed with Family
Lab Data: Labs Reviewed by me
Old Records: Reviewed (cardiology and CT surgery consult notes)
Impression/Plan
-
IMPRESSION:
Severe Aortic Stenosis
PLAN:
Transfemoral TAVR utilizing a Gonzalez balloon expandable valve left transfemoral access
- POD # 1/#30 echocardiogram
- Cardiac rehab consult
- Resume Eliquis post TAVR and d/c Aspirin
--- NOTE | 2023-11-01 13:13 | CM ---
spoke to pt and Daughter in PAT's, we discussed preop TAVR teaching including driving and lifting restrictions, he is prev indep, lives with his dauther, DEQUAN and grandson in a 2 story home with a first floor set up and 2 steps to enter. he denies
any dme's. he is agreeable to a f/u visit from the ct transitional are nurse after dc. he has the TAVR educ book, soap and instructions. cm role explained and all questions answered. plan isf or TAVR 11/03.
[2023-11-04] VITALS (21 sets, daily range): BP systolic 91–150; BP diastolic 50–98; BMI 28.3; BMI 27.9
[2023-11-04] MEDS: ANCEF 10 IV ×2 (06:00→07:00)
--- NOTE | 2023-11-04 08:58 | W.CVOR.SURPR ---
CVOR Surgeon Immed Pre Op
-
I have examined this patient prior to performance of the scheduled procedure.
The patient's condition is unchanged from the time of the dictated/written History and
Physical and the patient is able to undergo the scheduled procedure.
TF TAVR
CPR ok
Shocks/Meds ok
No to Sternotomy
No to CPB
--- NOTE | 2023-11-04 09:02 | ITS.CL.TAVR ---
Bag[facility] - TAVR Report
TAVR PRocedure
Procedure Report:
TRANSCATHETER AORTIC VALVE REPLACEMENT
Date of Procedure: November 04, 2023
Referring: Jeffry Boyd
Operators: Drs. Ladonna Ruby MD and Keo Cavazos MD
PROCEDURE PERFORMED:
1. Successful placement of 29mm Gonzalez Donna S3 aortic valve via left common femoral approach.
PREPROCEDURE NYHA CLASS: II
DESCRIPTION OF PROCEDURE: The patient was referred for assessment of severe symptomatic aortic stenosis and following a comprehensive evaluation it was felt that transcatheter aortic valve replacement (TAVR) would be the most appropriate treatment.
Informed consent was obtained prior to the procedure. A 'time-out' was called and the procedural plan was verbally confirmed by anesthesia, surgery, perfusion, and director of cardiac cath lab staff.
Arterial access site was obtained in the right radial artery and and venous access site was obtained in the right common femoral vein using ultrasound guidance and micropuncture technique. 6 Fr. sheaths were inserted.
A 5 Fr. transvenous pacing wire was advanced to the right ventricle where excellent pacing thresholds were obtained.
A 5 Fr. pigtail catheter was then advanced to the proximal ascending aorta / right aortic cusp where angiography was performed in multiple angles to define the co-planar angle that was most appropriate valve deployment (SAMI 6/CAU 10).
Ultrasound guidance was then used to obtain arterial access in the right common femoral artery and a 6 Fr. sheath was inserted. Angiography was performed and the arteriotomy site appeared appropriate for preclosure with two Perclose devices. An 8
Fr sheath was then inserted back into the common femoral artery over a J-tipped guidewire. An AL1 catheter was positioned in the proximal descending aorta. An Extra Stiff 0.035' J-tip wire was inserted to provide extra-support to facilitate the
Gonzalez eSheath delivery. The 16 Fr. Gonzalze eSheath was successfully placed in the descending thoracic aorta.
An AL1 catheter was advanced through the Gonzalez eSheath over a 0.035' J-tip guide wire. The AL1 catheter was positioned just above the aortic valve. A 0.035' Straight tip wire probed the aortic valve and crossed the stenotic leaflets. The AL1
was then advanced to the mid left ventricle. An invasive left ventricular pressure was checked which revealed a significantly elevated LVEDP at 23 mmHg. An Amplatz Extra-stiff wire with a generous curved tip was then positioned in the left
ventricular apex. A 29 mm Gonzalez Donna S3 valve was brought to the table and the orientation of the valve on the balloon delivery system was confirmed by all operators. The Donna S3 valve was advanced through the eSheath and into the proximal
descending thoracic aorta. The Donna S3 valve was centered on the delivery balloon and the entire system was retroflexed as it crossed the aortic arch. The Donna S3 delivery system was then advanced across the stenotic valve and the 29 mm Donna
S3 valve was deployed during rapid pacing. The valve deployment was uneventful. Transthoracic echocardiographic images post valve deployment revealed mildl aortic insufficiency with excellent position of the aortic prosthesis.
The Gonzalez balloon and delivery system were then removed. The Gonzalez sheath was removed and the Perclose knots were advanced to the arteriotomy site resulting in excellent hemostasis.
Fluoro Time: min, Dose: mGy, DAP : Gy.cm2
CONCLUSIONS:
1. Severe symptomatic aortic stenosis. Successful deployment of a 29 mm Donna S3 valve with minimal aortic insufficiency post procedure
2. Successful arteriotomy closure with 2 Perclose devices.
3. Acute on chronic diastolic heart failure with elevated LVEDP at 23mmHg.
Copy to: Jeffry Boyd and Mert Chacon
Ladonna Ruby MD, [facility], [facility]
[2023-11-04 10:43] LABS: ACT-LR - POC 329 Seconds (116-155)
[2023-11-04 10:57] LABS: ACT-LR - POC 332 Seconds (116-155)
--- NOTE | 2023-11-04 11:16 | W.PN.CT.SURG ---
CT Surgery Operative Note
-
OPERATIVE REPORT
Preoperative Diagnosis: Severe aortic valve stenosis, symptomatic
Postoperative Diagnosis: Same
Procedure(s) Performed: Left trans femoral TAVR with a 29 mm Gonzalez TAVR valve
Date of Procedure: 11/04/2023
Comorbidities:
1. Severe aortic stenosis, symptomatic
2. Prior open heart mitral valve repair and coronary artery bypass graft with patent grafts
3. Pre-existing right bundle branch block
4. Vertigo
5. Hypertension
6. Hyperlipidemia
7. GERD
8. Pancreatic cyst
9. Lyme disease
10. History of abdominal aortic aneurysm status post EVAR with bifurcating stents down to the common iliacs
11. Peripheral vascular disease
Cardiac Surgeon: Keo Cavazos MD, MS
Paver Operator: Ladonna Ruby MD
Anesthesia: Conscious Sedation and Local Analgesia
EBL: 100cc
Products: none
Implant: 29 mm Gonzalez ELIO TAVR valve, SN: [id number]
Indication(s) for Procedures: 88-year-old male with symptomatic severe aortic stenosis. CT TAVR protocol demonstrated amenable anatomy for a 29 mm TAVR valve. The complicating factor was his previous EVAR with bifurcating stents into the common
iliacs. Given his previous cardiac surgery and age 88, he was a partial rescue with only CPR, shocks, medications. No sternotomy and no cardiopulmonary bypass.
Start time: 1001hrs
Deployment time: 1049hrs
End time: 1114hrs
Radiation Dose (mGy): 421.81
DAP (cm2.Gy): 62.0730
Fluoroscopy time (minutes): 18.8
Contrast volume (ml): 98
TAVR gradient (mmHg): 4 mmHg
Protamine Dose: 40 mg
Final Valve Positionin/10
Findings: Preoperative LVEF was 50-55% and was 50-55% following TAVR without inotropic support. Function was overall normal without regional wall motion abnormalities or dyskinesia. The aortic valve was well seated with mild detectable PVL and mean
gradient across the new valve was 4mmHg. after deployment of the valve, there was a short run where the patient required pacing for sinus bradycardia and returned to sinus with intermittent Wenkeback while on the foundry laborer coreroom table. Due to the high
risk of requiring a permanent pacemaker, the temporary venous pacing wire was left in place and sutured. There was successful placement of 29 mm TAVR valve without acute complications. There was mild detectable PVL without any significant
hemodynamic compromise. Due to the tortuosity and heavy calcification of the [place] aorta, R pigtail coming from the right radial was unable to navigate down towards the abdominal aorta for completion angiogram. There was excellent distal pulses
on palpation in both the distal common femoral as well as the posterior tibial.
Access:
1. Device -left common femoral, perclose x 2
2. Pigtail -right radial + TR band
3. Transvenous Pacer -right common femoral vein
Description of Procedure: The patient was taken to the foundry laborer coreroom. Their identity and procedure to be performed were verified and they were positioned supine on the foundry laborer coreroom table. Induction via conscious sedation. The patient was then prepped and
draped from chin to thigh in a sterile fashion. A preoperative time-out was performed with all members of the team present. Arterial and venous access was performed using fluoroscopy and ultrasound guidance with micropuncture and Seldinger
technique. The right radial was accessed given the bend in the right common femoral artery with the EVAR graft. Two perclose devices were used on the device side followed by access to the aorta with a stiff wire to facilitate E-sheath placement
after predilation using the obturator lathered and propofol. Heparin was given. A stiff straight wire and AL-1 catheter was used to cross the aortic valve. An LVEDP was measured here and found to be 23 mmHg. The stiff wire was exchanged for an
extra stiff coiled tip wire. The valve was prepped and mounted on to the device carrier. An ACT of >250 was achieved. We verified x 3 that the valve was mounted in the correct orientation with the skirt of the valve directed toward the tip of the
device carrier. We advanced the device into the descending thoracic aorta where the valve was them mounted onto the balloon under fluoroscopy. The device was flexed and advanced over the arch into the root and positioned across the aortic valve.
Contrast fluoroscopy was used to visualize the prosthesis across the valve and to guide positioning. A pigtail catheter in the RCC as used as a guide. We aimed to have the bottom of the device marker at the annular hinge point. The device sheath was
pulled back. We performed a quick pre-deployment time out. The pacer was turned on and had capture. Blood pressure fell accordingly, angiography was done to verify the intended final placement and the valve was deployed with 5 seconds of rapid
pacing to nominal volume. The balloon was deflated and the pacer was turned off. We had recovery of vitals. The device carrier was unflexed and positioned back in the descending thoracic aorta. A transthoracic echocardiogram was performed. The
device was removed from the E-Sheath maintaining wire access followed by removal of the E-sheath as we cinched down the perclose devices. There was acceptable hemostasis. The pigtail unable to navigate down towards the descending thoracic aorta from
the right radial therefore completion angiogram is not performed. However pulse checks in the distal common femoral artery and posterior tibial of the left lower extremity demonstrated excellent palpable pulses. There was acceptable hemostasis of
bilateral groins and manual pressure was held following wire removal. We maintain the right common femoral vein access with temporary pacing wire given the high risk of needing temporary pacing. Low dose protamine was administered after checking
another ACT.
All instrument, sponge, and needle counts were confirmed to be correct x 2 at the end of the operation. The patient was transferred to the cardiac intensive care unit in stable condition.
I, Dr. Keo Cavazos, was present, scrubbed for, and performed all critical elements of this procedure.
Keo Cavazos MD
Cardiothoracic Surgeon
[facility]
This operative dictation was created using the [employer] dictation system. Please excuse any grammatical, typographical, or 'sound alike' errors
--- NOTE | 2023-11-04 11:42 | W.PN.UPDATE ---
Update Note
Progress Note Update
Reviewed Mr. Quintanilla with the heart team in the preTAVR SDM meeting and confirmed a 29mm S3 via TF access. Patient will resume Eliquis post TAVR. LVEDP 23mmHg. #29mmS3 (serial# [id number]) successfully deployed via Left transfemoral access. Post implant
MG 4mmHg.
--- NOTE | 2023-11-04 15:37 | CM ---
Chart reviewed. Patient is in the OR today. Patient is independent of ADLS, lives with his daughter, DEQUAN and grandson in a 2 ST, 1st floor set up, 2 NAT, 0 DME. Plan is for the patient to return home with CT Transitional RN. CM to follow.
[2023-11-04] MEDS: ANCEF 5 IV (17:52)
[2023-11-04] MEDS: TYLENOL 650 MG PO (18:22)
--- NOTE | 2023-11-04 19:00 | PTCARENOTE ---
Received patient from prior nurse. Patient AO x3. Right transvenous pacer wire, HR set at 40, MA at 20. Bedrest maintained. Left groin dressing oozing blood dressing changed. Right radial dressing intact. SR with a 1st degree HB, BBB. Patient
instructed to be NPO after midnight and bedrest maintained
[2023-11-04] MEDS: FLOMAX 0.400000000000000022 MG PO (20:38)
[2023-11-04] MEDS: ZESTRIL 40 MG PO (20:38)
[2023-11-04] MEDS: MYLICON 160 MG PO (21:21)
[2023-11-05] VITALS (11 sets, daily range): BP systolic 110–176; BP diastolic 68–100; PULSE 79; O2SAT 95–97; BMI 27.0
[2023-11-05] MEDS: TYLENOL 650 MG PO (04:21)
[2023-11-05] MEDS: SYNTHROID 50 MCG PO (04:22)
[2023-11-05 04:43] LABS: Hematocrit 32.7 % (39.0-52.0); Hemoglobin 11.7 g/dL (13.0-18.0); Mean Corp Hgb Conc. 35.8 g/dL (33.0-37.0); Mean Corpuscular Volume 92.1 fL (80.0-94.0); Mean Platelet Volume 9.5 fL (7.4-10.4); Platelet Count 130 10^3/uL (130-400); Red Blood Cell Count 3.55 10^6/uL (4.70-6.10); Red Cell Dist. Width 13.3 % (11.5-14.5); White Blood Cell Count 5.4 10^3/uL (4.8-10.8)
[2023-11-05 05:07] LABS: Blood Urea Nitrogen 16 mg/dl (9-20); Calcium 9.4 mg/dl (8.4-10.2); Carbon Dioxide 22 mmol/L (22-30); Chloride 107 mmol/L (98-107); Estimated Creatinine Clearance 63 ml/min; Glucose 106 mg/dl (70-99); Potassium 4.1 mmol/L (3.5-5.1); Sodium 136 mmol/L (135-145); eGFR > 60.00
--- NOTE | 2023-11-05 07:31 | W.PN.CT ---
Today's Communication / Plan
-
-pod #1
-R groin with temp pacing wire overnight. Npo and Eliquis held in case requires pacer
-Toprol held for bradycardia postop. Has pre-existing 1st degree AVB, RBBB, LAFB
-nsr 60s with PACs, PVCs overnight. No significant bradycardia or pauses overnight. Occasional V-pacing noted only after PVCs
-Echo today
-current meds (ASA, Lipitor, Zestril, Flomax, Proscar, Protonix, Synthroid)
Assessment / Plan
-
- Severe symptomatic - s/p Left trans femoral TAVR with a 29 mm Gonzalez TAVR valve on 11/04/2023, pod #1
- TTE: Preop LVEF was 50-55% and was 50-55% following TAVR without inotropic support, no wma. The aortic valve was well seated with mild detectable PVL and mean gradient across the new valve was 4mmHg
- Brief sinus bradycardia postop, requiring pacing. Returned to sinus rhythm with intermittent Wenckebach while on the laboratory machinist table. Due to the high risk of requiring a permanent pacemaker, the temporary venous pacing wire was left in place and
sutured overnight
- Prior open heart mitral valve repair and coronary artery bypass graft with patent grafts
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
- Vertigo
- Hypertension
- Hyperlipidemia
- Paroxysmal a-fib - on Eliquis preop
- GERD, H. Pylori (treated)
- Pancreatic cyst
- Lyme disease
- History of AAA -status post EVAR with bifurcating stents down to the common iliacs
- Peripheral vascular disease
Discussed patient care with: Nursing and Care Team
Subjective
Procedure
- s/p Left trans femoral TAVR with a 29 mm Gonzalez TAVR valve on 11/04/2023
-
Date of Service: November 05, 2023
Objective Data
-
PT 15.8 Sec (11.4-14.6) H 11/01/23 08:24
INR 1.28 11/01/23 08:24
APTT 36.4 Sec (23.4-35.0) H 11/01/23 08:24
Vital Signs
Vital Signs
Temp Pulse Resp BP Pulse Ox
98.7 F 60 20 143/98 95
11/04/23 23:09 11/04/23 22:15 11/04/23 23:09 11/04/23 20:41 11/04/23 23:09
CT Intake/Output/Weight
11/04/23 11/04/23 11/05/23
06:59 18:59 06:59
Intake Total 1000 / 1240 240 / 1240
Output Total 200 / 600 400 / 600
Balance 800 / 640 -160 / 640
SaO2: 95
Physical Exam
-
General: Awake and AOx3
Cardiovascular: Regular rate & rhythm, No Murmurs and No Rub
Respiratory: Decreased Breath Sounds
Incision: Other (groins are soft, nontender, cdi, no hematoma b/l. R groin with temp pw)
Extremities: No Edema (2+ L DP, Doppler R DP)
Data Reviewed
-
Lab Results: Results Reviewed
Medications: Active Meds Reviewed
Chest X-Ray: Report Reviewed and Image Reviewed
ECG: Report Reviewed and Image Reviewed
--- NOTE | 2023-11-05 08:07 | W.PN.ANS.POP ---
Anesthesia Post Operative
- Anesthesia Post Op Note
Vital Signs Stable-See Nursing Note: Yes
Airway Patent: Yes
Adequate Pain Control: Yes
Change in Mental Status: No
Current Postoperative Nausea & Vomiting: No
Anesthesia Complications: No
General Anesthetic Recall: No
Unplanned Admission: No
Post Op Hydration Adequate: Yes
[2023-11-05] MEDS: PROTONIX 40 MG PO (09:02)
[2023-11-05] MEDS: ZESTRIL 40 MG PO ×2 (09:02→20:29)
[2023-11-05] MEDS: PROSCAR 5 MG PO (09:02)
[2023-11-05] MEDS: LOW STRENGTH ASPIRIN 81 MG PO (09:02)
[2023-11-05] MEDS: METAMUCIL, KONSYL 1 PACKET PO (09:03)
--- NOTE | 2023-11-05 09:27 | W.DCSUMMARY ---
Documented by User: [email or web address] Davenport 11/05/23 14:21
Discharge Summary
Discharge Data
Date of Admission: 11/04/23
Date of Discharge: 11/05/23
-
Pending Results: No
Hospital Course
Primary care physician: Leonidas Evans
Outpatient undercover agent: Jeffry Boyd
Inpatient consultants: [facility] cardiology
Procedures:
1. Transcatheter aortic valve replacement
Primary Diagnosis:
1. Critical aortic stenosis (aortic valve area 0.6 cm)
Secondary Diagnoses:
1. Coronary artery disease
2. History of coronary artery bypass grafting x 4 (2013)
3. Mitral valve regurgitation
4. History of mitral valve repair #28 ring (2013)
5. Atrial fibrillation
6. Pre-existing right bundle branch block
4. Vertigo
5. Hypertension
6. Hyperlipidemia
7. GERD
8. Pancreatic cyst
9. Lyme disease
10. History of abdominal aortic aneurysm status post EVAR with bifurcating stents down to the common iliacs
11. Peripheral vascular disease
HPI: Guido Quintanilla is an 88-year-old male electively admitted on 11/04/2023 for TAVR.
Hospital course: Patient underwent Left trans femoral TAVR #29 mm Gonzalez TAVR valve by Drs. Keo Cavazos and Ladonna Moore. Brief sinus bradycardia postop, requiring pacing. Returned to sinus rhythm with intermittent Wenckebach while on the cath
lab table. Due to the high risk of requiring a permanent pacemaker, the temporary venous pacing wire was left in place and sutured overnight. Patient required no further pacing and temporary wire was removed after discussion with Dr. Moore. The
femoral venous sheath was removed by Facilities Project Manager RN. Eliquis 5 mg twice daily was resumed and Toprol at reduced dose 12.5 mg daily was resumed. Predischarge TTE reported
Home medication changes:
Discharge Plan
-
Patient Disposition: Home (Routine Discharge)
Discharge Diagnosis/Procedures: TF-TAVR
Condition: Good
Diet: Low Cholesterol and 2 Gram Sodium
Activity: As tolerated
Driving Restrictions: No driving for 1 week
Bathing Restrictions: OK to Shower
Others Tests: 30 Day Follow Up Echocardiogram: 12/06/2023 at 3pm in the Pavilion
Other Services: Cardiac Rehab
Wound Care: Please do not apply lotions, creams or powders to groin areas. Monitor for increased pain, swelling, redness or drainage. Please notify your doctor if any occur.
Stand Alone Forms: DC Inst - TransFemoral (TAVR)
Referrals:
CT Transitional Care Nurse [Outside] (The Cardiothoracic Transitional Care Nurse will call you to set up a visit in 1-2 days.)
[facility] Cardiac Rehab [Outside] - 12/23/23 1:00 pm
(Cardiac Rehab Orientation appointment is on 12/23/23 at 1PM
The Cardiac Rehab gym is located on the first floor of the [facility].)
Leonidas Evans DO [Family Provider] -
Ev Bah PA-C [Specified Professional Personl] - 12/03/23 4:00 pm
Additional Discharge Medication Instructions: Your metoprolol dose was changed to 12.5 mg daily. Stop taking your metoprolol of 25 mg twice a day
Prescriptions:
New
metoprolol succinate 25 mg Tablet Extended Release 24 Hr
12.5 mg PO DAILY Qty: 30 1RF
Continued
finasteride 5 MG tablet
5 mg PO DAILY
pantoprazole 40 MG tablet,delayed release (DR/EC)
40 mg PO DAILY
atorvastatin 40 MG tablet
40 mg PO QPM
tamsulosin [Flomax] 0.4 mg Capsule
0.4 mg PO HS
lisinopril 40 mg Tablet
40 mg PO BID
Eliquis 5 mg Tablet
5 mg PO BID
Dramamine 25 mg Tablet,Chewable
50 mg PO Q8HPRN PRN (Reason: vertigo)
acetaminophen 500 mg Tablet
1,000 mg PO Q6H PRN (Reason: pain)
amoxicillin 500 mg Tablet
2,000 mg PO DAILY PRN (Reason: Dental Procedures)
Daily Fiber (psyllium-aspart) 3 gram Powder In Packet
1 packet PO DAILY
Cbd Oil
1 squirt transdermal DAILY PRN (Reason: pain)
Hempvanna
1 applic topical DAILY PRN (Reason: Pain cream)
levothyroxine 50 mcg Tablet
50 mcg PO DAILY
aspirin 81 mg Tablet,Chewable
81 mg PO DAILY
Discontinued
metoprolol succinate 50 MG tablet extended release 24 hr
25 mg PO BID
amoxicillin 500 mg Tablet
500 mg PO TID
Rx Instructions:
x 7days
Discharge Orders:
Discharge Patient (As Directed); Ordered 11/06/23
Ordered By: Sherrie Paris
Care Plan Goals
Care Plan Goals:
Problem: Readiness for enhanced knowledge related to diagnosis and treatment plan
Goal: Understand your diagnosis and treatment plan needs, including medications if applicable.
Instructions: Know your diagnosis, underlying causes and treatment plan options, including medications if applicable. Consult with your health care team to learn about your diagnosis and treatment plan, including medications if applicable.
Discharge Date and Time
Print Language: AUSTRALIAN

Documented by User: [email or web address] Pak 11/06/23 11:41
Discharge Summary
Discharge Data
Date of Admission: 11/04/23
Date of Discharge: 11/06/23
Hospital Course
Primary care physician: Leonidas Evans
Outpatient undercover agent: Jeffry Boyd
Inpatient consultants: [facility] cardiology
Procedures:
1. Transcatheter aortic valve replacement
Primary Diagnosis:
1. Critical aortic stenosis (aortic valve area 0.6 cm)
Secondary Diagnoses:
1. Coronary artery disease
2. History of coronary artery bypass grafting x 4 (2013)
3. Mitral valve regurgitation
4. History of mitral valve repair #28 ring (2013)
5. Atrial fibrillation
6. Pre-existing right bundle branch block
4. Vertigo
5. Hypertension
6. Hyperlipidemia
7. GERD
8. Pancreatic cyst
9. Lyme disease
10. History of abdominal aortic aneurysm status post EVAR with bifurcating stents down to the common iliacs
11. Peripheral vascular disease
HPI: Guido Quintanilla is an 88-year-old male electively admitted on 11/04/2023 for TAVR.
Hospital course: Patient underwent Left trans femoral TAVR #29 mm Gonzalez TAVR valve by Drs. Keo Cavazos and Ladonna Moore. Brief sinus bradycardia postop, requiring pacing. Returned to sinus rhythm with intermittent Wenckebach while on the cath
lab table. Due to the high risk of requiring a permanent pacemaker, the temporary venous pacing wire was left in place and sutured overnight. Patient required no further pacing and temporary wire was removed after discussion with Dr. Moore. The
femoral venous sheath was removed by Facilities Project Manager RN. Eliquis 5 mg twice daily was resumed and Toprol at reduced dose 12.5 mg daily was resumed. Predischarge TTE reported left ventricular ejection fraction of 35-40% and a well-seated Gonzalez ELIO
TAVR #29 valve peak/mean gradients across aortic valve are 17/10, mild TR. Patient was kept an additional night to monitor for significant bradycardia. On 11/05 postoperative day #2, patient's telemetry did not reveal any significant pauses. He
was deemed stable for discharge with a heart monitor for 2 weeks.
Home medication changes:
See below
Discharge Plan
-
Patient Disposition: Home (Routine Discharge)
Discharge Diagnosis/Procedures: TF-TAVR
Condition: Good
Diet: Low Cholesterol and 2 Gram Sodium
Activity: As tolerated
Driving Restrictions: No driving for 1 week
Bathing Restrictions: OK to Shower
Others Tests: 30 Day Follow Up Echocardiogram: 12/06/2023 at 3pm in the [facility]
Other Services: Cardiac Rehab
Wound Care: Please do not apply lotions, creams or powders to groin areas. Monitor for increased pain, swelling, redness or drainage. Please notify your doctor if any occur.
Stand Alone Forms: DC Inst - TransFemoral (TAVR)
Referrals:
CT Transitional Care Nurse [Outside] (The Cardiothoracic Transitional Care Nurse will call you to set up a visit in 1-2 days.)
[facility]. Cardiac Rehab [Outside] - 12/23/23 1:00 pm
(Cardiac Rehab Orientation appointment is on 12/23/23 at 1PM
The Cardiac Rehab gym is located on the first floor of the [facility].)
Leonidas Evans DO [Family Provider] -
Ev Bah PA-C [Specified Professional Personl] - 12/03/23 4:00 pm
Additional Discharge Medication Instructions: Your metoprolol dose was changed to 12.5 mg daily. Stop taking your metoprolol of 25 mg twice a day
Prescriptions:
New
metoprolol succinate 25 mg Tablet Extended Release 24 Hr
12.5 mg PO DAILY Qty: 30 1RF
Continued
finasteride 5 MG tablet
5 mg PO DAILY
pantoprazole 40 MG tablet,delayed release (DR/EC)
40 mg PO DAILY
atorvastatin 40 MG tablet
40 mg PO QPM
tamsulosin [Flomax] 0.4 mg Capsule
0.4 mg PO HS
lisinopril 40 mg Tablet
40 mg PO BID
Eliquis 5 mg Tablet
5 mg PO BID
Dramamine 25 mg Tablet,Chewable
50 mg PO Q8HPRN PRN (Reason: vertigo)
acetaminophen 500 mg Tablet
1,000 mg PO Q6H PRN (Reason: pain)
amoxicillin 500 mg Tablet
2,000 mg PO DAILY PRN (Reason: Dental Procedures)
Daily Fiber (psyllium-aspart) 3 gram Powder In Packet
1 packet PO DAILY
Cbd Oil
1 squirt transdermal DAILY PRN (Reason: pain)
Hempvanna
1 applic topical DAILY PRN (Reason: Pain cream)
levothyroxine 50 mcg Tablet
50 mcg PO DAILY
aspirin 81 mg Tablet,Chewable
81 mg PO DAILY
Discontinued
metoprolol succinate 50 MG tablet extended release 24 hr
25 mg PO BID
amoxicillin 500 mg Tablet
500 mg PO TID
Rx Instructions:
x 7days
Discharge Orders:
Discharge Patient (As Directed); Ordered 11/06/23
Ordered By: Sherrie Paris
Care Plan Goals
Care Plan Goals:
Problem: Readiness for enhanced knowledge related to diagnosis and treatment plan
Goal: Understand your diagnosis and treatment plan needs, including medications if applicable.
Instructions: Know your diagnosis, underlying causes and treatment plan options, including medications if applicable. Consult with your health care team to learn about your diagnosis and treatment plan, including medications if applicable.
Discharge Date and Time
Print Language: AUSTR[place]IAN
--- NOTE | 2023-11-05 09:45 | PTCARENOTE ---
received patient in bed,lying flat with temp. pacer wire and sheath in right groin. temp.pacer HR 40, MA 20. temp. pacer wire was removed at 0924 by CVPA. sheath removed by IVU staff. monitor shows NSR with first degree and BBC. VSS. patient is
restless, just wants to get OOB. patient aware that he needs to lay flat after sheath removal.
--- NOTE | 2023-11-05 10:40 | W.PN.UPDATE ---
Update Note
Progress Note Update
Patient set up with [employer] [facility] ([id number]) 14 day cardiac catheterization technician to be applied at discharge. Reviewed how to apply, charge and return with patient. Allowed for and answered questions.
--- NOTE | 2023-11-05 10:46 | W.PN.UPDATE ---
Update Note
Progress Note Update
No need for PPM as D/W Dr. Moore. Transvenous pacing wire removed without difficulty.
--- NOTE | 2023-11-05 11:32 | W.PN.CARDCBS ---
Addendum entered and electronically signed by Ladonna Ruby MD 11/05/23 14:15:
I saw and examined the patient.
The Superintendent Recreation's note was reviewed and I agree with the note.
Comment: Patient did well overnight with stable heart rhythm. Temporary pacemaker still in place.
Vital signs and lab work reviewed. On exam patient is laying flat in bed with temporary wire present in his right groin via a 6 [place] sheath. He is in no acute distress, awake and alert, oriented x 3, normal S1 and S2, 2 out of 6 systolic
ejection murmur, no JVD, lungs are clear to auscultation anteriorly, abdomen is soft, nontender, nondistended with active bowel sounds, bilateral groin sites have dressing in place which is clean, dry and intact with no evidence of hematoma or
bruit, warm extremities without significant edema.
Recommendations: 1. Post TAVR echocardiogram today.
2. 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 His beta ember continues to remain on hold. We will discuss initiating half dose Toprol-XL today. Plan to monitor
on telemetry for another 24 hours and discharged home with a school lunch monitor in place.
3. We will discontinue temporary pacemaker and sheath with plan to get patient out of bed and ambulating today.
4. Anticipate discharge in next 24 to 48 hours.
Ladonna Ruby MD, [facility], [facility]
Original Note:
Today's Communication / Plan
-
Continue to monitor heart rates on telemetry, likely keep overnight
D/c with Rhythm Star monitor in place
Impression / Plan
-
PCP: Dr. Evans
Site Planner: Dr. Boyd
Impression:
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
CAD
CABG (CESAR-LAD, sequential [id number]-PDA) 08/07/2013
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
Cardiomyopathy, EF 30-35% by echo 09/07/2023
Paroxysmal atrial fibrillation/flutter
chronic Eliquis anticoagulation
AAA s/p aortic stent graft 08/2013
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
HTN
HLD
Hypothyroidism
BPH
GERD
Echo 09/07/2023: EF 30 to 35%, mild LVH, stage II diastolic dysfunction, status post mitral valve ring repair, severe AAS with peak/mean gradients 71/44 mmHg, LEIGH 0.6 cm2, mild TR, estimated PAP 37 mmHg
Echo 11/05/2023: Study completed, report pending
Plan:
-He had severe symptomatic aortic stenosis and underwent L transfemoral TAVR 11/04/2023.
-POD #1. Seen this morning and doing well.
-Postop bradycardia noted. Temp pacing wire maintained overnight with rare episodes of bradycardia and pacing. Will discharge with 14-day rhythm star monitor in place.
-EKG sinus rhythm with first-degree AV block, RBBB, and LAFB. Stable.
-Echo completed 11/05/2023. Await final report.
-Blood pressure stable. Continue lisinopril.
-Continue aspirin and Lipitor with history of CAD.
-Will likely monitor overnight on telemetry
-Follow up arranged
Progress Note - Site Planner
Subjective
Date of Service: November 05, 2023
No complaints
Objective
Labs:
11/05/23 04:31
11/05/23 04:31
Labs
Hgb 11.7 g/dL (13.0-18.0) L 11/05/23 04:31
Hct 32.7 % (39.0-52.0) L 11/05/23 04:31
Plt Count 130 10^3/uL (130-400) 11/05/23 04:31
PT 15.8 Sec (11.4-14.6) H 11/01/23 08:24
INR 1.28 11/01/23 08:24
APTT 36.4 Sec (23.4-35.0) H 11/01/23 08:24
Sodium 136 mmol/L (135-145) 11/05/23 04:31
Potassium 4.1 mmol/L (3.5-5.1) 11/05/23 04:31
BUN 16 mg/dl (9-20) 11/05/23 04:31
Creatinine 0.8 mg/dL (0.7-1.3) 11/05/23 04:31
Glucose 106 mg/dl (70-99) H 11/05/23 04:31
Vital Signs and I&O:
Vital Signs
Temp Pulse Resp BP Pulse Ox
98.1 F 67 18 176/79 96
11/05/23 06:59 11/05/23 10:45 11/05/23 06:59 11/05/23 09:02 11/05/23 08:30
Vital Signs
Temp Pulse Resp BP Pulse Ox
98.1 F 67 18 176/79 96
11/05/23 06:59 11/05/23 10:45 11/05/23 06:59 11/05/23 09:02 11/05/23 08:30
Intake & Output
11/03/23 11/04/23 11/05/23 11/06/23
06:59 06:59 06:59 06:59
Intake Total 1240 / 1240
Output Total 800 / 800 400 / 400
Balance 440 / 440 -400 / -400
Physical Exam
Physical Exam
GEN: No distress, awake, alert, oriented x3
HEENT: supple, anicteric, mmm
LUNGS: CTA, no wheezes/rales
CV: Reg, S1/S2, no murmur
EXT: No clubbing, cyanosis, or edema
NEURO: Gross non-focal
SKIN: Warm, dry, no rash
--- NOTE | 2023-11-05 13:44 | CM ---
Addendum entered by Mariela Eldridge RN 11/05/23 16:19:
CT Transitional RN to call daughter to schedule appointment [phone]
Original Note:
Chart reviewed. Patient is independent of ADLS, lives with his daughter, DEQUAN and grandson in a 2 ST, 1st floor set up, 2 NAT, 0 DME. Plan is for the patient to return home with CT Transitional RN. CM to follow.
[2023-11-05] MEDS: TOPROL XL 12.5 MG PO (14:47)
[2023-11-05] MEDS: LIPITOR 40 MG PO (17:52)
[2023-11-05] MEDS: ELIQUIS 5 MG PO (20:29)
[2023-11-05] MEDS: FLOMAX 0.400000000000000022 MG PO (20:35)
--- NOTE | 2023-11-06 00:48 | PTCARENOTE ---
Pt. OOB independently this shift, gait steady, states he needs to move around after being on bedrest for an extended period of time. NSR on the monitor, vitals stable. B/L groin dressings CDI without drainage or hematoma assessed, pedals present
by Doppler. No complaints of pain discomfort, pt. currently sleeping (HR 50s'-60's, NSR).
[2023-11-06 03:30] VITALS: BP 126/74
[2023-11-06 03:50] VITALS: BMI 27.0
[2023-11-06 03:51] VITALS: BMI 27.0
[2023-11-06 04:12] LABS: Hematocrit 33.6 % (39.0-52.0); Hemoglobin 11.7 g/dL (13.0-18.0); Mean Corp Hgb Conc. 34.8 g/dL (33.0-37.0); Mean Corpuscular Volume 94.6 fL (80.0-94.0); Mean Platelet Volume 9.7 fL (7.4-10.4); Platelet Count 104 10^3/uL (130-400); Red Blood Cell Count 3.55 10^6/uL (4.70-6.10); Red Cell Dist. Width 13.2 % (11.5-14.5); White Blood Cell Count 5.2 10^3/uL (4.8-10.8)
[2023-11-06 04:37] LABS: Blood Urea Nitrogen 15 mg/dl (9-20); Calcium 9.4 mg/dl (8.4-10.2); Carbon Dioxide 25 mmol/L (22-30); Chloride 105 mmol/L (98-107); Estimated Creatinine Clearance 56 ml/min; Glucose 103 mg/dl (70-99); Potassium 4.1 mmol/L (3.5-5.1); Sodium 137 mmol/L (135-145); eGFR > 60.00
[2023-11-06] MEDS: SYNTHROID 50 MCG PO (06:00)
--- NOTE | 2023-11-06 07:11 | W.PN.CT ---
Today's Communication / Plan
-
-pod #2
-no issues overnight, in nsr 60s
-groins are stable, nontender, no hematoma b/l
-restarted on low dose Toprol 12.5 mg and Eliquis on 11/04
-Echo 11/04 reviewed:EF 35-40%, AV peak/mean grad 17/10 mmHg
-ambulate, continue IS, OOB
-likely d/c today with monitor
Assessment / Plan
-
- Severe symptomatic - s/p Left trans femoral TAVR with a 29 mm Gonzalez TAVR valve on 11/04/2023, pod #2
- TTE: Preop LVEF was 50-55% and was 50-55% following TAVR without inotropic support, no wma. The aortic valve was well seated with mild detectable PVL and mean gradient across the new valve was 4mmHg
- Brief sinus bradycardia postop, requiring pacing. Returned to sinus rhythm with intermittent Wenckebach while on the lab animal technologist table. Due to the high risk of requiring a permanent pacemaker, the temporary venous pacing wire was left in place and
sutured overnight
- Prior open heart mitral valve repair and coronary artery bypass graft with patent grafts
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
- Vertigo
- Hypertension
- Hyperlipidemia
- Paroxysmal a-fib - on Eliquis preop
- GERD, H. Pylori (treated)
- Pancreatic cyst
- Lyme disease
- History of AAA -status post EVAR with bifurcating stents down to the common iliacs
- Peripheral vascular disease
-Echo 11/05/23:
1. Moderate concentric left ventricular hypertrophy. Severely reduced left ventricular systolic function. Global hypokinesis. LV ejection fraction is 35-40% by Morales's method of discs. Diastolic function indeterminate due to
mitral annular ring.
2. Normal right ventricular size and function. Pacer wire seen in right ventricle.
3. Moderately dilated bilateral atria.
4. Thickened mitral valve leaflets. Mitral annular calcification. Mitral sclerosis. Peak/mean gradients across the mitral valve are 18/10 mmHg at heart rate of 78bpm.
5. Well seated Gonzalez Donna TAVR #29mm valve. Peak/mean gradients across the aortic valve are 17/10 mmHg. No aortic regurgitation is seen.
6. Mild tricuspid regurgitation. Estimated pulmonary artery pressure of 20-25 mmHg assuming a right atrial pressure of 3 mmHg.
7. No pericardial effusion.
Compared to prior echocardiogram from 11/04/23, no significant changes.
Discussed patient care with: Nursing and Care Team
Subjective
Procedure
- s/p Left trans femoral TAVR with a 29 mm Gonzalez TAVR valve on 11/04/2023
-
Date of Service: November 06, 2023
Objective Data
-
Lab Results
11/05/23 04:31
11/05/23 04:31
PT 15.8 Sec (11.4-14.6) H 11/01/23 08:24
INR 1.28 11/01/23 08:24
APTT 36.4 Sec (23.4-35.0) H 11/01/23 08:24
Vital Signs
Vital Signs
Temp Pulse Resp BP Pulse Ox
98.8 F 83 16 129/74 95
11/05/23 22:38 11/05/23 22:37 11/05/23 22:38 11/05/23 22:37 11/05/23 22:38
CT Intake/Output/Weight
11/05/23 11/05/23 11/06/23
06:59 18:59 06:59
Intake Total 240 / 1240
Output Total 600 / 800 400 / 400
Balance -360 / 440 -400 / -400
SaO2: 95
[2023-11-06 07:38] VITALS: BP 132/77
[2023-11-06] MEDS: PROTONIX 40 MG PO (08:34)
[2023-11-06] MEDS: LOW STRENGTH ASPIRIN 81 MG PO (08:34)
[2023-11-06] MEDS: ZESTRIL 40 MG PO (08:34)
[2023-11-06] MEDS: TOPROL XL 12.5 MG PO (08:34)
[2023-11-06] MEDS: PROSCAR 5 MG PO (08:34)
[2023-11-06] MEDS: ELIQUIS 5 MG PO (08:35)
--- NOTE | 2023-11-06 09:55 | W.PN.CARDCBS ---
Today's Communication / Plan
-
Stable rhythm
Okay for discharge to home today from cardiology standpoint
Impression / Plan
-
PCP: Dr. Evans
Fuel Management Handler: Dr. Boyd
Impression:
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
CAD
CABG (CESAR-LAD, sequential [id number]-BS-PDA) 08/07/2013
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
Cardiomyopathy, EF 30-35% by echo 09/07/2023
Paroxysmal atrial fibrillation/flutter
chronic Eliquis anticoagulation
AAA s/p aortic stent graft 08/2013
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
HTN
HLD
Hypothyroidism
BPH
GERD
Echo 09/07/2023: EF 30 to 35%, mild LVH, stage II diastolic dysfunction, status post mitral valve ring repair, severe AAS with peak/mean gradients 71/44 mmHg, LEIGH 0.6 cm2, mild TR, estimated PAP 37 mmHg
Echo 11/05/2023: EF 35 to 40% moderately dilated left and right atria. Mitral sclerosis with peak and mean gradients across the mitral valve with 18 and 10 mmHg at a heart rate of 78 bpm. The Gonzalez ELIO TAVR number 29 mm valve is well-seated
with peak and mean gradients of 17 and 10 mmHg and no aortic insufficiency. No pericardial effusion.
Plan:
-He had severe symptomatic aortic stenosis and underwent L transfemoral TAVR 11/04/2023.
-POD #2. Seen this morning and doing well. Postop echo finds well-seated aortic valve with peak and mean gradients of 17 and 10 mmHg and no regurgitation
-Postop bradycardia noted. Temp pacing wire maintained overnight with rare episodes of bradycardia and pacing. Will discharge with 14-day rhythm star monitor in place.
-EKG this AM sinus rhythm with first-degree AV block, RBBB, and LAFB. Stable.
-Tele stable
-Blood pressure stable. Continue lisinopril.
-Continue aspirin and Lipitor with history of CAD.
-Follow up arranged
Okay for discharge from a cardiology standpoint.
Progress Note - Fuel Management Handler
Subjective
Date of Service: November 06, 2023
He tells me he feels well no chest pain shortness of breath palpitations or dizziness
Objective
Labs:
11/06/23 03:39
11/06/23 03:39
Labs
Hgb 11.7 g/dL (13.0-18.0) L 11/06/23 03:39
Hct 33.6 % (39.0-52.0) L 11/06/23 03:39
Plt Count 104 10^3/uL (130-400) L 11/06/23 03:39
PT 15.8 Sec (11.4-14.6) H 11/01/23 08:24
INR 1.28 11/01/23 08:24
APTT 36.4 Sec (23.4-35.0) H 11/01/23 08:24
Sodium 137 mmol/L (135-145) 11/06/23 03:39
Potassium 4.1 mmol/L (3.5-5.1) 11/06/23 03:39
BUN 15 mg/dl (9-20) 11/06/23 03:39
Creatinine 0.9 mg/dL (0.7-1.3) 11/06/23 03:39
Glucose 103 mg/dl (70-99) H 11/06/23 03:39
Vital Signs and I&O:
Vital Signs
Temp Pulse Resp BP Pulse Ox
97.5 F 75 18 132/77 98
11/06/23 07:30 11/06/23 08:34 11/06/23 07:30 11/06/23 08:34 11/06/23 07:30
Vital Signs
Temp Pulse Resp BP Pulse Ox
97.5 F 75 18 132/77 98
11/06/23 07:30 11/06/23 08:34 11/06/23 07:30 11/06/23 08:34 11/06/23 07:30
Intake & Output
11/04/23 11/05/23 11/06/23 11/07/23
06:59 06:59 06:59 06:59
Intake Total 1240 / 1240 480 / 480
Output Total 800 / 800 400 / 400
Balance 440 / 440 80 / 80
Physical Exam
Physical Exam
GEN: No distress, awake, alert, oriented x3
HEENT: supple, anicteric, mmm
LUNGS: CTA, no wheezes/rales
CV: Reg, S1/S2, 1/6 BSEM, no rubs
EXT: No clubbing, cyanosis, or edema
NEURO: Gross non-focal
SKIN: Warm, dry, no rash
[2023-11-06 11:37] VITALS: BP 120/72
--- NOTE | 2023-11-06 13:21 | PTCARENOTE ---
D/C instructions given to patient and daughter,both verbalizes understanding. as per Freya Nance, monitor was placed on patient. telemetry D/C'd, INT x 2 D/C'd. discharged to home via accompanied staff.
== END 2023-11-06 13:40 | disposition home or self-care (01) | DRG 266 ==
LOC: IVU 07:30
PROVIDERS: Physician Assistant Medical; Physician Assistant Surgical; ADMITTING PHYSICIAN Thoracic Surgery (Cardiothoracic Vascular Surgery); CONSULT PHYSICIAN Internal Medicine Interventional Cardiology; FAMILY PHYSICIAN Family Medicine; OTHER PHYSICIAN Internal Medicine Cardiovascular Disease
PROC: 02RF38Z Replacement of Aortic Valve with Zooplastic Tissue, Percutaneous Approach (ICD-10-PCS; 2023-11-04)
DX: I35.0 Nonrheumatic aortic (valve) stenosis (principal); I50.33 Acute on chronic diastolic (congestive) heart failure; A69.20 Lyme disease, unspecified; I42.9 Cardiomyopathy, unspecified; I45.2 Bifascicular block; K86.2 Cyst of pancreas; I25.10 Atherosclerotic heart disease of native coronary artery without angina pectoris; K21.9 Gastro-esophageal reflux disease without esophagitis; I11.0 Hypertensive heart disease with heart failure; E78.00 Pure hypercholesterolemia, unspecified; E03.9 Hypothyroidism, unspecified; N40.0 Benign prostatic hyperplasia without lower urinary tract symptoms; I73.9 Peripheral vascular disease, unspecified; I44.1 Atrioventricular block, second degree; R00.1 Bradycardia, unspecified; I48.0 Paroxysmal atrial fibrillation; Z79.01 Long term (current) use of anticoagulants; Z79.899 Other long term (current) drug therapy; Z86.79 Personal history of other diseases of the circulatory system; Z95.1 Presence of aortocoronary bypass graft; Z95.2 Presence of prosthetic heart valve
CPT/HCPCS: 93308; 33361; 36415; 71045; 71046; 80048; 80053; 81003; 82248; 83036; 83880; 85025; 85027; 85347; 85610; 85730; 86850; 86900; 86901; 87070; 87147; 93005; 93306; 93321; 93325; C1760; C1769; C1894; Q9967

== ENCOUNTER → 2023-12-06 14:05 | Outpatient (REF) | payer OTHER, SELFPAY | LOC: RCS 14:05 | PROVIDERS: ATTENDING PHYSICIAN Internal Medicine Cardiovascular Disease; FAMILY PHYSICIAN Family Medicine | DX: I48.0 Paroxysmal atrial fibrillation (principal); I25.10 Atherosclerotic heart disease of native coronary artery without angina pectoris; I35.0 Nonrheumatic aortic (valve) stenosis; Z95.2 Presence of prosthetic heart valve | CPT/HCPCS: 93306 ==

== ENCOUNTER 2024-01-21 13:40 | Outpatient (RCR) | payer OTHER, SELFPAY | END 2024-01-21 23:59 | disposition home or self-care (01) | LOC: CRHB 13:40 | PROVIDERS: ATTENDING PHYSICIAN Internal Medicine Cardiovascular Disease | DX: Z95.4 Presence of other heart-valve replacement (principal) | CPT/HCPCS: G0422; G0423 ==

== ENCOUNTER → 2024-02-17 11:22 | Outpatient (REF) | payer OTHER, SELFPAY | LOC: RAD 11:22 | PROVIDERS: ATTENDING PHYSICIAN Surgery Vascular Surgery; FAMILY PHYSICIAN Family Medicine | DX: I71.40 Abdominal aortic aneurysm, without rupture, unspecified (principal) | CPT/HCPCS: 74176 ==

== ENCOUNTER → 2024-02-21 07:23 | Outpatient (REF) | payer OTHER, SELFPAY | LOC: RAD 07:23 | PROVIDERS: ATTENDING PHYSICIAN Surgery Vascular Surgery; FAMILY PHYSICIAN Family Medicine | DX: I73.9 Peripheral vascular disease, unspecified (principal) | CPT/HCPCS: 93923; 93925 ==

== ENCOUNTER 2024-02-21 13:35 | Outpatient (RCR) | payer OTHER, SELFPAY | END 2024-02-21 23:59 | disposition home or self-care (01) | LOC: CRHB 13:35 | PROVIDERS: ATTENDING PHYSICIAN Internal Medicine Cardiovascular Disease | DX: Z95.4 Presence of other heart-valve replacement (principal) | CPT/HCPCS: G0422; G0423 ==

== ENCOUNTER 2024-03-17 13:40 | Outpatient (RCR) | payer OTHER, SELFPAY | END 2024-03-17 23:59 | disposition home or self-care (01) | LOC: CRHB 13:40 | PROVIDERS: ATTENDING PHYSICIAN Internal Medicine Cardiovascular Disease | DX: Z95.4 Presence of other heart-valve replacement (principal) | CPT/HCPCS: G0422; G0423 ==

== ENCOUNTER 2024-10-03 11:14 | Emergency (ER) | payer OTHER, SELFPAY ==
[2024-10-03 11:19] VITALS: BP 168/96
[2024-10-03 11:59] LABS: % Basophils 0.3 % (0-2); % Eosinophils 0.9 % (0-6); % Immature Granulocytes 0.3 % (0-0.5); % Lymphocytes 12.1 % (20.5-51.1); % Monocytes 10.8 % (1.7-9.3); % Neutrophils 75.6 % (42.2-75.2); Absolute Eosinophils 0.1 10^3/uL (0-0.7); Absolute Lymphocytes 0.8 10^3/uL (1.2-3.4); Absolute Monocytes 0.8 10^3/uL (0.1-0.6); Absolute Neutrophils 5.2 10^3/uL (1.4-6.5); Hematocrit 38.2 % (39.0-52.0); Hemoglobin 13.3 g/dL (13.0-18.0); Mean Corp Hgb Conc. 34.8 g/dL (33.0-37.0); Mean Corpuscular Hgb 32.9 pg (27.0-31.0); Mean Corpuscular Volume 94.6 fL (80.0-94.0); Mean Platelet Volume 9.3 fL (7.4-10.4); Nucleated Red Blood Cells % 0 % (-); Platelet Count 151 10^3/uL (130-400); Red Blood Cell Count 4.04 10^6/uL (4.70-6.10); Red Cell Dist. Width 13.7 % (11.5-14.5); White Blood Cell Count 6.9 10^3/uL (4.8-10.8)
[2024-10-03 12:08] LABS: ALT (SGPT) 19 U/L (0-50); AST (SGOT) 23 U/L (17-59); Albumin 4.2 g/dl (3.5-5.0); Alkaline Phosphatase 62 U/L (38-126); Blood Urea Nitrogen 18 mg/dl (9-20); Calcium 9.9 mg/dl (8.4-10.2); Carbon Dioxide 25 mmol/L (22-30); Chloride 107 mmol/L (98-107); Glucose 110 mg/dl (70-99); Potassium 4.2 mmol/L (3.5-5.1); Sodium 140 mmol/L (135-145); Total Bilirubin 1.1 mg/dl (0.2-1.3); Total Protein 6.9 g/dl (6.3-8.2); eGFR > 60.00
[2024-10-03 12:18] LABS: Troponin I 0.016 ng/ml
[2024-10-03 13:49] VITALS: BP 196/102
--- NOTE | 2024-10-03 14:07 | ED.GENMED ---
History of Present Illness
General
Chief Complaint: Chest Pain
Source: patient
Exam Limitations: none
Time Seen by Provider: 10/03/24 13:37
Nursing documentation reviewed up to this point in time: agreed with
History of Present Illness
History of Present Illness:
81-year-old male with history as documented presents to the ER for evaluation of chest pain. Patient reports symptoms have been off and on for the past few months. He describes vague discomfort parasternal region. No clear triggering or relieving
factors karina�she says sometimes it is worse at night and when he lays up in recliner and sleeps with his arms crossed it seems to improve. No exertional component and he says he remains active. He denies any associated shortness of breath. No
abdominal pain, no nausea, vomiting, diaphoresis. No swelling or pain in the legs. He does have known CAD status post CABG and follows with Dr. Boyd as an outpatient. He says he called his cardiology office to follow-up on these symptoms and
they recommended he first be evaluated in the emergency room.
Past History
Past History
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
ED Past Surgical History: Cardiac (CABG/mitral valve repair 07/2013) and Other
Social History
Tobacco: Non-smoker
Alcohol: None
Personal:
Living: with family
Employment: Retired
Family History
Family History: Other (Noncontributory)
Review of Systems
Review of Systems
All Other Systems: ROS reviewed and negative except as documented in HPI and ROS
Constitutional: Denies fever
Respiratory: Denies cough or trouble breathing
Cardiac: Reports chest pain; Denies diaphoresis or palpitations
ABD/GI: Denies abdominal pain, nausea or vomiting
: Denies flank pain
Musculoskeletal: Denies edema, neck pain or back pain
Neurological: Denies headache
Phy Exam
Physical Exam
Physical Exam:
General: Awake, alert, oriented x3; no acute distress
Head: Normocephalic, atraumatic
Eyes: Conjunctiva normal, sclera anicteric
Throat: Airway intact, handling secretions
Neck: Trachea midline, no JVD
Lungs: Clear to auscultation bilaterally, no wheezing, rales, rhonchi
Heart: Regular rate and rhythm, no murmurs, gallops, or rubs; midline sternotomy scar
Abd: Soft, non distended, nontender
Neuro: No gross deficits
Skin: no rash in area of concern
Extremities: No edema in extremities, equal pulses in all extremities
Scores
Heart Failure Risk
Heart Failure Risk Score: Not Applicable
Heart Score for Chest Pain Patients
STEMI patient?: No
History: Slightly or Non-Suspicious
ECG: Nonspecific Repolarization
Age: >/= 65 years
Risk Factors: >/= 3 Risk Factors or History of CAD
Troponin: </= Normal Limit
Heart Score for Chest Pain Patients: 5
Heart Score Risk: 20.3% MACE over next 6 weeks
Withdrawal Assessment of Alcohol
Withdrawal Assessment Completed?: Not applicable
Course
Orders/Labs/Results
Orders:
Orders
10/03/24 11:15
ECG [Electrocardiogram (*1)] Urgent
Reason for Study: Chest Pain
EKG- Treatment ONCE
10/03/24 11:33
Complete Blood Count/With Diff Urgent
Comprehensive Metabolic Panel Urgent
Troponin I Urgent
10/03/24 13:39
CR Chest - 2 Views Urgent
Comment:
Reason For Exam: chest pain
10/03/24 14:45
Troponin I Urgent
Abnormal Lab Results
10/03/24
11:33
RBC 4.04 L 10^6/uL
(4.70-6.10)
Hct 38.2 L %
(39.0-52.0)
MCV 94.6 H fL
(80.0-94.0)
MCH 32.9 H pg
(27.0-31.0)
Absolute Lymphs (auto) 0.8 L 10^3/uL
(1.2-3.4)
Absolute Monos (auto) 0.8 H 10^3/uL
(0.1-0.6)
Neutrophils % 75.6 H %
(42.2-75.2)
Lymphocytes % 12.1 L %
(20.5-51.1)
Monocytes % 10.8 H %
(1.7-9.3)
Glucose 110 H mg/dl
(70-99)
10/03/24 11:33
10/03/24 11:33
Vital Signs
Initial and Last Documented VS:
Initial Vital Signs
Temp Pulse Resp BP Pulse Ox
36.7 C 81 18 168/96 97
10/03/24 11:19 10/03/24 11:19 10/03/24 11:19 10/03/24 11:19 10/03/24 11:19
Last Documented Vital Signs
Temp Pulse Resp BP Pulse Ox
36.7 C 64 17 196/102 97
10/03/24 11:19 10/03/24 14:45 10/03/24 14:45 10/03/24 13:49 10/03/24 14:45
MDM/Problems Addressed
Differential Diagnosis Includes:
Costochondritis, GERD, ACS, pneumonia, pneumothorax, symptomatic A-fib
MDM/Problems Addressed:
89-year-old male presents for evaluation of vague chest discomfort ongoing for the past few months. Vitals and exam as above�notably hypertensive but otherwise unremarkable vitals. His EKG shows sinus rhythm with bifascicular block similar to
prior. Labs sent in triage including a CBC and a CMP which showed no acute abnormalities. His initial troponin is negative. Will repeat troponin. Check chest x-ray. Very low clinical suspicion for PE and patient is maintained on Eliquis�in my
judgment no further evaluation for this diagnosis indicated at this point in time. Will monitor closely reassess after the above.
Repeat troponin negative. Chest x-ray shows no acute disease. Patient well-appearing on clinical reassessment I think he is stable for discharge follow-up with cardiology via chest pain hotline. He feels very comfortable this plan. All questions
answered.
Chronic conditions affecting care:
CAD, atrial fibrillation
Acute Exacerbation and/or Progression of Chronic Illness:
Acutely hypertensive
Acute Exacerbation and/or Progression of Chronic Illness: HTN
*Radiology
Radiology exam reviewed: radiology read reviewed
*Pulse Oximetry
Patient hypoxic: no
*EKG
Interpreted by ED Provider?: Yes
Comparison EKG: no changes
Heart Rate: 80
Rate: normal
Rhythm: sinus
[place]: left axis deviation
Interval: normal interval
QRS Pattern: left vent hypertrophy and other (Bifascicular block)
Ischemia: other (Septal infarct age-indeterminate)
*Critical Care Note
Total Time (30-74mins, 75-104mins- exclusive of procedures): Not Applicable
Data Reviewed
Source: patient and records
ED Attending Note
-
Portions of this chart may have been created with voice recognition software.� Occasional wrong word or��sound alike� substitutions may have occurred due to the inherent limitations of voice recognition software.
Discharge Plan
Departure
Patient with high blood pressure during this ER visit?: Yes
Discharge Problem:
Chest pain, Hypertension
Instructions: Chest Pain CBC Follow Up
Prescriptions:
No Action
finasteride 5 MG tablet
5 mg PO DAILY
pantoprazole 40 MG tablet,delayed release (DR/EC)
40 mg PO DAILY
atorvastatin 40 MG tablet
40 mg PO QPM
tamsulosin [Flomax] 0.4 mg Capsule
0.4 mg PO HS
lisinopril 40 mg Tablet
40 mg PO BID
Eliquis 5 mg Tablet
5 mg PO BID
Dramamine 25 mg Tablet,Chewable
50 mg PO Q8HPRN PRN (Reason: vertigo)
acetaminophen 500 mg Tablet
1,000 mg PO Q6H PRN (Reason: pain)
amoxicillin 500 mg Tablet
2,000 mg PO DAILY PRN (Reason: Dental Procedures)
Daily Fiber (psyllium-aspart) 3 gram Powder In Packet
1 packet PO DAILY
Cbd Oil
1 squirt transdermal DAILY PRN (Reason: pain)
[place]
1 applic topical DAILY PRN (Reason: Pain cream)
levothyroxine 50 mcg Tablet
50 mcg PO DAILY
aspirin 81 mg Tablet,Chewable
81 mg PO DAILY
metoprolol succinate 25 mg Tablet Extended Release 24 Hr
12.5 mg PO DAILY Qty: 30 1RF
Referrals:
Leonidas Evans DO [Family Provider] - Follow up in 2-3 days
Gary Junior MD [Active] - Call in 1-3 days for appt (Stock Controller)
Activity Restrictions/Additional Instructions:
Thank you for visiting the Emergency Department at [facility].
1. Please schedule a follow up appointment as directed. Call first thing tomorrow morning to make an appointment.
2. If indicated, please take your medications as instructed and indicated on discharge paperwork.
3. If any of your symptoms do not improve, or persist, or become more severe within 6-12 hours, please return to the emergency department for further care.
4. Please return to the emergency department if you develop a headache, neck pain/stiffness, fever greater than 100.4F, chest pain, shortness of breath, persistent nausea, vomiting, slurred speech, difficulty walking, numbness/tingling, weakness,
signs of infection or any other symptoms that are worrisome to you.
Please call [phone] if you have any questions.
Interventions
Interventions:
*Risk Screen - Suicide Last Done: 10/03/24 11:21
*General Assessment Last Done: 10/03/24 13:56
*Neglect/Abuse Screening Last Done: 10/03/24 11:21
*ED- Fall Risk Assessment Last Done: 10/03/24 13:56
*ED COVID-19 Vaccine History Last Done: 10/03/24 13:56
ED- Cardiac Assessment Last Done: 10/03/24 13:56
Discharge Date and Time
Print Language: CHINESE
[2024-10-03 15:00] VITALS: BP 170/92
[2024-10-03 15:13] LABS: Troponin I 0.017 ng/ml
== END 2024-10-03 16:51 | disposition home or self-care (01) ==
LOC: EMR 11:14
PROVIDERS: EMERGENCY PHYSICIAN Emergency Medicine; FAMILY PHYSICIAN Family Medicine
DX: R07.9 Chest pain, unspecified (principal); I10 Essential (primary) hypertension; I45.2 Bifascicular block; I25.10 Atherosclerotic heart disease of native coronary artery without angina pectoris; E78.00 Pure hypercholesterolemia, unspecified; I48.0 Paroxysmal atrial fibrillation; Z79.01 Long term (current) use of anticoagulants; Z95.1 Presence of aortocoronary bypass graft
CPT/HCPCS: 99285; 71046; 80053; 84484; 85025; 93005

== ENCOUNTER → 2024-11-02 06:49 | Outpatient (REF) | payer OTHER, SELFPAY | LOC: PAVMRI 06:49 | PROVIDERS: ATTENDING PHYSICIAN Physical Medicine & Rehabilitation; FAMILY PHYSICIAN Family Medicine | DX: M48.062 Spinal stenosis, lumbar region with neurogenic claudication (principal) | CPT/HCPCS: 72148 ==

== ENCOUNTER → 2024-11-27 08:00 | Outpatient (REF) | payer OTHER, SELFPAY | LOC: RCS 08:00 | PROVIDERS: ATTENDING PHYSICIAN Internal Medicine Cardiovascular Disease; FAMILY PHYSICIAN Family Medicine | DX: Z95.2 Presence of prosthetic heart valve (principal) | CPT/HCPCS: 93306 ==

== ENCOUNTER → 2025-02-21 08:23 | Outpatient (REF) | payer OTHER, SELFPAY | LOC: RAD 08:23 | PROVIDERS: ATTENDING PHYSICIAN Registered Nurse | DX: I71.40 Abdominal aortic aneurysm, without rupture, unspecified (principal); I73.9 Peripheral vascular disease, unspecified | CPT/HCPCS: 76770; 93922; 93925 ==